=== PATIENT | male | born 1945 | race Asian ===

== ENCOUNTER 2019-01-17 08:08 | Inpatient (IN) | payer OTHER ==
[~2019-01-17] VITALS: Ht 172.7 cm; Wt 62.2 kg
--- NOTE | 2019-01-17 08:10 | NUR ---
PATIENT TRASNFERRED TO BED 8
[2019-01-17 08:13] VITALS: BP 120/80
[2019-01-17] MEDS ORDERED: NACL 0.9% 500 ML IV SCH (08:21)
--- NOTE | 2019-01-17 08:23 | NUR ---
DOCTOR AT BEDSIDE
--- NOTE | 2019-01-17 08:28 | NUR ---
CXR AT BEDSIDE
--- NOTE | 2019-01-17 08:30 | NUR ---
Tarcey doty in [facility] - 01/17/19 at 0830 by MEDFARZANA X-RAY AT BEDSIDE
[2019-01-17] MEDS ORDERED: ALBUTEROL SULFATE/IPRATROPIU 3 ML SOL IH ONE (08:40)
--- NOTE | 2019-01-17 08:40 | NUR ---
ATTEMPTED TO COLLECT URINE SAMPLE, PER PT HE DOES NOT NEED TO URINATE AT THIS TIME. PROVIDED URINAL AT BEDSIDE.
[2019-01-17 08:49] LABS: BASOPHILS # (AUTO) 0.1 K/uL (0.00-0.22); EOSINOPHILS # (AUTO) 0.2 K/uL (0-0.4); EOSINOPHILS % (AUTO) 2.7 % (0.0-4.0); HEMATOCRIT 41.7 % (36-52); HEMOGLOBIN 13.5 g/dL (12.0-18.0); LYMPHOCYTES # (AUTO) 1.7 K/uL (2.0-11.5); MEAN CORPUSCULAR HEMOGLOBIN 29 pg (27-31); MEAN CORPUSCULAR HGB CONC 32 g/dL (33-37); MEAN CORPUSCULAR VOLUME 89.2 fL (80-94); MONOCYTES # (AUTO) 0.9 K/uL (0.8-1.0); MONOCYTES % (AUTO) 11.8 % (1.7-9.3); NEUTROPHILS # (AUTO) 4.9 K/uL (1.8-7.7); NEUTROPHILS % (AUTO) 62.5 % (42.2-75.2); PLATELET COUNT (AUTO) 287 K/uL (140-450); RED BLOOD CELL COUNT(AUTO) 4.68 MIL/uL (4.20-6.10); RED CELL DISTRIBUTION WIDTH 16.5 % (11.6-13.7); WHITE BLOOD COUNT (AUTO) 7.8 K/uL (4.8-10.8)
--- NOTE | 2019-01-17 08:58 | NUR ---
PT LEFT TO CT
[2019-01-17 09:02] LABS: PROTHROMBIN TIME 10.5 secs (10.8-13.4)
[2019-01-17 09:11] LABS: ALBUMIN 3.1 g/dL (3.4-5.0); ASPARTATE AMINOTRANSFERASE 25 U/L (15-37); CARBON DIOXIDE 26.3 mmol/L (21-32); CHLORIDE 102 mmol/L (98-107); GLUCOSE 132 mg/dL (74-106); POTASSIUM 4.3 mmol/L (3.5-5.1); SODIUM SERUM 138 mmol/L (136-145); TOTAL BILIRUBIN 0.8 mg/dL (0.0-1.0); UREA NITROGEN, BLOOD 12 mg/dL (7-18)
[2019-01-17] MEDS ORDERED: PIPERACILLIN/TAZOBACTAM 3.375 GM in DEXTROSE 5% 50 ML IV ONE (09:15)
[2019-01-17] MEDS ORDERED: PIPERACILLIN/TAZOBACTAM 3.375 GM VIAL IV ONE (09:33)
--- NOTE | 2019-01-17 09:37 | NUR ---
PT STILL UNABLE TO URINATE FOR SAMPLE
[2019-01-17] MEDS ORDERED: ASPIRIN 81 MG TAB.CHEW PO ONE (09:40)
[2019-01-17] MEDS ORDERED: ENOXAPARIN 60 MG/0.6 ML SYR SUBQ ONE (09:40)
--- NOTE | 2019-01-17 10:10 | NUR ---
PT FLUCTUATING FROM NSR TO SINUS BRADYCARDIA, LOWEST AT 38 BPM, LASTING APPROXIMATELY 45 SECONDS AND THEN GOES BACK TO NSR 75-[address] COSME MADE AWARE.
--- NOTE | 2019-01-17 10:48 | NUR ---
Patient will be admitted to care of DR. DE JESUS. Admited to TELEMETRY. Will go to [facility]. Belongings list completed. Report to JAYLIN MAURICIO.
--- NOTE | 2019-01-17 10:53 | NUR ---
RECEIVED REPORT FROM ED RN CHING. PT IS FEELING DIZZY NOW, BUT STATES "FEELS OK" WHEN NOT MOVING. PT FEELS MORE DIZZY WITH MOVEMENT. AOX4, ABLE TO ANSWER ALL QUESTIONS APPROPRIATELY. AT BEDSIDE, PT PREFERS HER TO TRANSLATE. IRREGULAR CARDIAC RHYTHM, PLACED ON TELE MONITORING. INTERMITTENT RHONCHI IN TANIA, DECREASED BREATH SOUNDS. PT HAS BEEN AMBULATORY BEFORE ONSET OF CC. ALL SAFETY PRECAUTIONS IN PLACE, WILL CONTINUE TO MONITOR.
[2019-01-17] MEDS ORDERED: FUROSEMIDE 40 MG/4 ML VIAL IVP SCH (11:00)
[2019-01-17 11:03] VITALS: BP 121/65
[2019-01-17] MEDS: NACL 0.9% 1,000 ML IV SCH ×2 (11:44→22:09)
[2019-01-17] MEDS: LEVOFLOXACIN 500 MG/D5W PREMIX 100 ML IV SCH (11:45)
[2019-01-17] MEDS: methylPREDNISolone SS 40 MG/ML VIAL IM SCH ×2 (11:45→17:15)
[2019-01-17] MEDS ORDERED: methylPREDNISolone SS 40 MG in WATER STERILE 1 ML IM SCH (12:00)
[2019-01-17] MEDS ORDERED: methylPREDNISolone SS 40 MG/ML VIAL IVP SCH (12:00)
--- NOTE | 2019-01-17 12:42 | NUR ---
PER DR. WINSLOW, CT CHEST W/ CONTRAST MAY BE DONE TOMORROW ( NOT AVAILABLE TO SIGN). HAS SIGNED CONSENT FOR PATIENT.
[2019-01-17] MEDS ORDERED: ALBU-118 IH (12:48)
[2019-01-17] MEDS ORDERED: ETHA400T PO (12:48)
[2019-01-17] MEDS ORDERED: FLUT1DSK2 IH (12:48)
[2019-01-17] MEDS ORDERED: AZIT500T PO (12:48)
[2019-01-17] MEDS ORDERED: [UNRECOGNIZED DRUG - CODE] PO (12:48)
[2019-01-17] MEDS ORDERED: METO-744 PO (12:48)
[2019-01-17 14:00] LABS: APPEARANCE,URINE CLEAR (CLEAR); BILIRUBIN,URINE NEGATIVE (NEGATIVE); BLOOD, URINE NEGATIVE (NEGATIVE); COLOR,URINE YELLOW (YELLOW); LEUKOCYTE ESTERASE ,URINE NEGATIVE (NEGATIVE); NITRITE, URINE NEGATIVE (NEGATIVE); UGLUCOSE NEGATIVE (NEGATIVE)
[2019-01-17] MEDS ORDERED: ALBUTEROL SULFATE PO PRN (14:05)
--- NOTE | 2019-01-17 14:25 | NUR ---
PHARMACY SENT TECH TO ACQUIRE HOME MEDS FROM [facility]. PER PHARMACIST, ONLY 2 TABS OF ETHAMBUTOL IN THE PILL CONTAINER- ASK FAMILY TO BRING. ASKED AT BEDSIDE TO BRING ETHAMBUTOL- SHE SAYS SHE WILL BRING TOMORROW 01/18. I HAVE NOTIFIED PHARMACIST.
--- NOTE | 2019-01-17 14:46 | NUR ---
RADIOLOGY REQUEST CANCEL CT CHEST W/WO CONTRAST AND RE-ORDER TOMORROW. WILL ENDORSE TO [facility].
--- NOTE | 2019-01-17 15:17 | NUR ---
ADMINISTERED PROAIR FOR PT C/O SOB. RR 24. NO OTHER COMPLAINTS AT THIS TIME. BP STABLE. STILL IN AFIB ON MONITOR. HR 97 AT THIS TIME.
[2019-01-17 16:00] VITALS: BP 123/72
[2019-01-17] MEDS ORDERED: ALBUTEROL HFA MDI 90 MCG/ACTUATION 18 GM INH PRN (16:00)
--- NOTE | 2019-01-17 16:04 | NUR ---
NOTIFIED RT TO EVAL PATIENT. PT C/O SOB, CHEST TIGHTNESS. 94% ON 0.5L NC NOW. RETRACTIONS NOTED. INTERMITTENT WHEEZING ON RIGHT LUNG WARD. RT AWARE TO COME SEE PATIENT JIM. Addendum: 01/17/19 at 1606 by Kimi Mckeon Meng RN PLACED PATIENT IN 90 DEGREE HOB, NO RELIEF OF SYMPTOMS.
[2019-01-17] MEDS ORDERED: ALBUTEROL SULFATE/IPRATROPIU 3 ML SOL IH PRN (16:15)
--- NOTE | 2019-01-17 16:25 | NUR ---
RT SPOKE WITH DR. WINSLOW REGARDING SOB. I HAVE NOTIFIED DR. WINSLOW THAT PT HR HAS BEEN RANGING FROM HIGHEST 150S AND LOWEST IN THE 40S. HR NOW IN 80S. PT HAS NOT TAKEN DOSE OF METOPROLOL SUCC 25 MG ER TODAY PER . PER DR. WINSLOW, ADMIN ONE TIME DOSE OF METOPROLOL. ALSO RECEIVED ORDERS FOR PRN HR >130. Addendum: 01/17/19 at 1925 by Kimi Mckeon Meng, RN MILENA PRN HR >130
[2019-01-17] MEDS ORDERED: METOPROLOL SUCCINATE 50 MG TABER PO SCH (16:45)
--- NOTE | 2019-01-17 17:58 | NUR ---
DR. PALMER AT BEDSIDE TO EVAL PATIENT. NOTIFIED THAT PATIENT HAS BEEN IN CONTROLLED/UNCONTROLLED AFIB, HR RANGING FROM 150S TO 40S, ADMINISTERED ONE TIME DOSE OF METOPROLOL 25 MG ER PO AT [address] WINSLOW ORDERS. PER DR. PALMER, D/C HOME MED METOPROLOL SUCC ER 25 MG PO AND KEEP THE PRN CARDIZEM FOR HR>130. DR. PALMER ALSO ORDERED FOR 3X TROPONIN DRAW.
--- NOTE | 2019-01-17 19:00 | NUR ---
TROPONIN CRITICAL 0.092, NOTIFIED DR. PALMER, NO NEW ORDERS. PT DENIES CHEST PAIN.
--- NOTE | 2019-01-17 19:19 | NUR ---
ENDORSED POC TO ELECTRIC MULE OPERATOR RN. ENDORSED TO KEEP SPO2 BETWEEN 88-92%, PRN CARDIZEM ORDER, ORDER CT CHEST W/WO CONTRAST TOMORROW 01/18/19.
--- NOTE | 2019-01-17 19:20 | NUR ---
RECEIVED REPORT FROM AM NURSE. PT IN BED, AWAKE, ALERT AND ORIENTED. PT ABLE TO VERBALIZE NEEDS. PT AT BEDSIDE. NO C/O CHEST PAIN OR DISCOMFORT. PT LEFT FOREARM 20G INTACT AND INFUSING WELL. PT URINAL AT BEDSIDE. FALL PRECAUTIONS IN PLACE. CALL LIGHT WITHIN REACH.
[2019-01-17] MEDS: ALBUTEROL SULFATE/IPRATROPIU 3 ML SOL IH SCH (19:58)
[2019-01-17] MEDS: BUDESONIDE 0.5 MG/2 ML NEBU INH SCH (19:59)
[2019-01-17 20:00] VITALS: BP 111/75
[2019-01-17] MEDS ORDERED: NON-FORMULARY ITEM (Fluticasone/Salmeterol* (Advair 250-50 Diskus*) 1 DSK) IH SCH (21:00)
--- NOTE | 2019-01-17 21:36 | NUR ---
ROUNDED ON PT. PT SLEEPING IN BED. NO VISIBLE SIGNS OF DISTRESS. PT STATING 93% ON ROOM AIR. CALL LIGHT WITHIN REACH. WILL CONTINUE TO MONITOR.
[2019-01-18] VITALS (7 sets, daily range): BP systolic 86–121; BP diastolic 67–81
[2019-01-18] MEDS: methylPREDNISolone SS 40 MG/ML VIAL IM SCH ×2 (00:23→06:21)
[2019-01-18] MEDS: ALBUTEROL SULFATE/IPRATROPIU 3 ML SOL IH SCH ×4 (01:12→19:00)
--- NOTE | 2019-01-18 01:30 | NUR ---
PT IS VERBALIZING NEEDS, UNABLE TO UNDERSTAND DUE TO LANGUAGE BARRIER. USED [employer] SYSTEM TO CONNECT WITH [employer]ESE [employer]IGH SCHOOL BAND DIRECTOR, AT THIS TIME ALL CANTONESE INTERPRETERS BUSY. WILL CALL BACK SHORTY TO CONNECT WITH HIGH SCHOOL BAND DIRECTOR.
--- NOTE | 2019-01-18 01:46 | NUR ---
PAGED MD FOR PAIN MEDICATION, AWAITING RETURN PHONE CALL.
--- NOTE | 2019-01-18 02:12 | NUR ---
WEB MANAGER INFORMED THAT PT HR IS 152 ON THE TELE MONITOR. PT BP 108/65 AT THIS TIME. CAN NOT ADMINISTER DILTIAZEM PER MD ORDERS TO HOLD IF SBP <110. STILL WAITING FOR MD TO RETURN PHONE CALL. ATTEMPTED TO USE [employer] FOR DRYING MACHINE OPERATOR. NO DRYING MACHINE OPERATOR AVAILABLE. WILL CONTINUE TO CALL FOR DRYING MACHINE OPERATOR.
--- NOTE | 2019-01-18 03:23 | NUR ---
LAB CALLED TO REPORT CRITICAL TROPONIN LEVEL OF 0.113. PAGED TO DR. WINSLOW AT THIS TIME.
--- NOTE | 2019-01-18 03:45 | NUR ---
DR BANUELOS CALLED BACK FOR TROPONIN LEVELS
[2019-01-18] MEDS ORDERED: traMADol 50 MG TAB PO PRN (03:50)
[2019-01-18] MEDS: DILTIAZEM 25 MG/5 ML VIAL IVP PRN ×3 (03:51→12:53)
--- NOTE | 2019-01-18 03:51 | NUR ---
CARDIZEM GIVEN FOR HR >130, SBP >110. ABLE TO REACH FORMING MACHINE UPKEEP MECHANIC VIA [employer] SYSTEM, IVAN #[id number], TO EXPLAIN RATIONAL FOR MEDICATION. PT PROCEEDED TO THROW THE PHONE ON THE BED. TOLD FORMING MACHINE UPKEEP MECHANIC "TALK TO MY " PT CALLED. EXPLAINED RATIONAL FOR MEDICATION.
--- NOTE | 2019-01-18 07:10 | NUR ---
ENDORSED TO AM NURSE. PT STABLE AT THIS TIME.
--- NOTE | 2019-01-18 07:11 | NUR ---
Received bedside report from pm nurse November. Pt in semi-fowlers in bed, awake, respirations even & nonlabored. Mathew at bedside. Left forearm IV intact with ongoing NS @ 80ml/hr. Call light within reach.
--- NOTE | 2019-01-18 07:30 | NUR ---
Priyanka at bedside states that she brought pt's meds. Ethambutol & Rifampin bottles inventoried & sent to pharmacy for verification.
[2019-01-18] MEDS: AZITHROMYCIN 250 MG TAB PO SCH (08:01)
--- NOTE | 2019-01-18 08:02 | NUR ---
Notified by telemetry monitor that pt's HR went up to 150. Assessed pt: pt in bed with HOB up at 45%, c/o dizziness & nausea. Apical pulse for 1 whole minute is 134bpm. Cardizem IVP administered. Will cont to monitor. Addendum: 01/18/19 at 1103 by Linda Underwood RN Clarification: HOB up at 45�.
[2019-01-18] MEDS: ENOXAPARIN 40 MG/0.4 ML SYR SUBQ SCH (08:13)
[2019-01-18] MEDS: BUDESONIDE 0.5 MG/2 ML NEBU INH SCH ×2 (08:13→19:16)
[2019-01-18 08:36] LABS: BASOPHILS % (AUTO) 0.4 % (0.0-2.0); HEMATOCRIT 43.6 % (36-52); HEMOGLOBIN 13.9 g/dL (12.0-18.0); LYMPHOCYTES # (AUTO) 0.3 K/uL (2.0-11.5); LYMPHOCYTES % (AUTO) 4.3 % (20.5-51.1); MEAN CORPUSCULAR HEMOGLOBIN 29 pg (27-31); MEAN CORPUSCULAR HGB CONC 32 g/dL (33-37); MEAN CORPUSCULAR VOLUME 89.8 fL (80-94); MONOCYTES # (AUTO) 0.5 K/uL (0.8-1.0); MONOCYTES % (AUTO) 7.3 % (1.7-9.3); NEUTROPHILS # (AUTO) 5.9 K/uL (1.8-7.7); PLATELET COUNT (AUTO) 289 K/uL (140-450); RED BLOOD CELL COUNT(AUTO) 4.86 MIL/uL (4.20-6.10); RED CELL DISTRIBUTION WIDTH 16.6 % (11.6-13.7)
[2019-01-18 08:37] LABS: WHITE BLOOD COUNT (AUTO) 6.8 K/uL (4.8-10.8)
[2019-01-18] MEDS: ETHAMBUTOL 400 MG TABLET PO SCH (08:54)
[2019-01-18] MEDS: RIFAMPIN 300 MG CAP PO SCH (08:55)
[2019-01-18] MEDS ORDERED: ETHAMBUTOL 400 MG TAB PO SCH (09:00)
[2019-01-18] MEDS ORDERED: METOPROLOL SUCCINATE 50 MG TABER PO SCH (09:00)
--- NOTE | 2019-01-18 09:02 | NUR ---
Reassessed BP & HR. Pt currently in semi-fowlers in bed. Priyanka at bedside speaks Cantonese, able to speak & understand Solomon Islander proficiently. Per pt, he still feels dizzy when he opens his eyes, but feels ok when they're closed. SaO2 = 88-90% in room air & c/o feeling weak. O2 @ 2Lpm given via n/c, SaO2 = 90-92%. Will cont to monitor. Call light within reach.
[2019-01-18] MEDS: NACL 0.9% 1,000 ML IV SCH (09:14)
[2019-01-18 10:41] LABS: ALBUMIN 3.1 g/dL (3.4-5.0); ANION GAP 18.9 (8-16); ASPARTATE AMINOTRANSFERASE 55 U/L (15-37); CARBON DIOXIDE 23.5 mmol/L (21-32); CHLORIDE 102 mmol/L (98-107); CREATININE 1.2 mg/dL (0.7-1.3); GLUCOSE 164 mg/dL (74-106); POTASSIUM 4.4 mmol/L (3.5-5.1); SODIUM SERUM 140 mmol/L (136-145); TOTAL BILIRUBIN 0.6 mg/dL (0.0-1.0); UREA NITROGEN, BLOOD 15 mg/dL (7-18)
--- NOTE | 2019-01-18 11:15 | NUR ---
Dr. Jacques at bedside to assess pt. Updated Dr. Jacques re: administrations of persistent uncontrolled afib, dizziness, poor appetite, & generalized weakness. not at bedside. Called Mathew () celphone & notified that attending doctor is here. Per , she will be in hospital in a few minutes.
[2019-01-18] MEDS ORDERED: MECLIZINE 25 MG TAB PO SCH (11:39)
--- NOTE | 2019-01-18 11:45 | NUR ---
Mathew arrived & speaking with Dr. Jacques at bedside.
[2019-01-18] MEDS: LEVOFLOXACIN 500 MG/D5W PREMIX 100 ML IV SCH (11:57)
[2019-01-18] MEDS ORDERED: MEGESTROL 400 MG/10 ML UDC PO SCH (12:00)
--- NOTE | 2019-01-18 12:00 | NUR ---
ANTIVERT AND MEGACE ADMINISTERED. AT BEDSIDE. AGREED WITH PLAN OF CARE. PT CONTINUES TO C/O DIZZINESS. O2 SAT 98% ON 02 2L/MIN VIA N/C. N/C REMOVED, PT O2 SAT 94-96% IN RA. NO SIGNS OF DISTRESS.
--- NOTE | 2019-01-18 13:05 | NUR ---
Pt c/o vertigo few moments after Cardizem is administered. BP 105/68, HR 109-120 irregular, SaO2 89% on room air. O2 administered @ 1Lpm via n/c for comfort. Advised pt to stay in bed, bilat upper siderails in place, bed alarm on. at bedside with pt. Call light within reach. Pt verbalized feeling better after a few minutes rest. Will cont to monitor.
--- NOTE | 2019-01-18 14:00 | NUR ---
Pt in semi-fowlers in bed, vital signs obtained. No signs of distress. at bedside. Pt states no dizziness at this time. Call light within reach.
--- NOTE | 2019-01-18 14:07 | NUR ---
P.T. NOTES RECEIVED P.T. EVAL ORDER; MULT. ATTEMPTS, Pt DECLINED DUE TO FEELS DIZZY WHEN HE MOVES, WANTS TO REST & BE COMFORTABLE AT THIS TIME, REQUESTED P.T. STAFF TO FF UP TOMORROW, (JARVIS) IN ROOM & SUPPORTIVE; Pt MEDICATED W/ ANTIVERT PER RN; EXPLAINED RISKS OF BED BOUND, BENEFITS OF THERAPY, Pt STILL DECLINED W/ P.T.; LIVES AT HOME W/ , USES HOME O2 3L, AMBULATORY WITHOUT ASST DEVICE; WK=144/67, 102/66; CQ=448; O2 SAT 3L=95%; Pt & APPRECIATIVE, BED ALARM ON, CALL [facility], PHONE, TABLE IN REACH; FF UP TOMORROW.
--- NOTE | 2019-01-18 14:50 | NUR ---
Tech at bedside obtaining echocardiogram. Pt awake, no signs of distress, respirations even & nonlabored. Call light within reach.
--- NOTE | 2019-01-18 16:05 | NUR ---
Pt HR @ 145bpm via tele monitor. Pt currently moving around in bed & attempting to use urinal. Pt able to urinate 100ml light sherly urine. Pericare provided, underpads changed. Pt repositioned. Skin to posterior body clear & intact. No signs of distress. Pt c/o mild dizziness during repositioning but states "ok ok" after a few minutes of rest. Call light within reach. Left AC IV saline lock intact & asymptomatic.
--- NOTE | 2019-01-18 16:40 | NUR ---
Pt in semi-fowlers in bed, awake & interacting appropriately with , respirations even & nonlabored, HR = 120-140bpm via tele monitor. Call light within reach.
[2019-01-18] MEDS: traMADol 50 MG TAB PO PRN (17:41)
--- NOTE | 2019-01-18 19:05 | NUR ---
Bedside report given to pm nurse November. Pt in bed, no distress at this time. Mathew at bedside.
--- NOTE | 2019-01-18 19:06 | NUR ---
REPORT RECEIVED FROM AM NURSE. PT SLEEPING IN BED, BUT EASILY AROUSABLE. BREATHING EQUAL AND UNLABORED. AT BEDSIDE. NO C/O PAIN. PT ON 2L NC. PT LEFT FOREARM 20 G S/L INTACT. FALL PRECAUTIONS IN PLACE. URINAL AT BEDSIDE. CALL LIGHT WITHIN REACH. WILL CONTINUE TO MONITOR.
--- NOTE | 2019-01-18 20:00 | NUR ---
VITALS TAKEN. PT HR 140, BP 96/67. PER ORDERS TO HOLD CARDIZEM.
[2019-01-18] MEDS: MECLIZINE 25 MG TAB PO SCH (20:10)
--- NOTE | 2019-01-18 20:30 | NUR ---
1900 DID NOT WANT HHNTX GIVEN. SHE WANTED HER TO SLEEP. PATIENT WAS NOT IN ANY RESPIRATORY DISTRESS
--- NOTE | 2019-01-18 21:15 | NUR ---
BLOOD PRESSURE REASSESS 92/65 AT THIS TIME. WILL CONTINUE TO MONITOR.
--- NOTE | 2019-01-18 22:15 | NUR ---
BP REASSESSED 96/59 AT THIS TIME. PULSE 128, O2 92%
--- NOTE | 2019-01-18 23:59 | NUR ---
DR. MONTES CALLED BACK REGARDING PTS BP OF 86/69 AT 2352. PER DIA NOWAK TO BOLUS 500ML N.S
[2019-01-19] VITALS (69 sets, daily range): BP systolic 47–157; BP diastolic 25–99
[2019-01-19] MEDS ORDERED: NACL 0.9% 500 ML IV ONE
[2019-01-19] MEDS: ALBUTEROL SULFATE/IPRATROPIU 3 ML SOL IH SCH ×4 (00:59→19:16)
--- NOTE | 2019-01-19 01:15 | NUR ---
BOLUS FINISHED. PT BP REASSESS 95/73 AT THIS TIME. WILL CONTINUE TO MONITOR.
--- NOTE | 2019-01-19 04:29 | NUR ---
PT CURRENT HR 165. PT LAST BP AT 0400 WAS 92/74[address] MONTES TO INFORM. PER MD ORDER CARDIZEM 10MG IVP ONCE.
[2019-01-19] MEDS ORDERED: DILTIAZEM 25 MG/5 ML VIAL IVP SCH (05:00)
--- NOTE | 2019-01-19 05:00 | NUR ---
PT SLEEPING BUT AROUSABLE. PT SLEEPING WITH MOUTH OPEN AND STATING 86% ON N.C. PT SWITCHED TO SIMPLE MASK 6L FOR ADEQUATE OXYGENATION. PT CURRENTLY STATING 90% ON SIMPLE MASK. PER MD SATURATIONS TO BE MAINTAINED BETWEEN 88-92%.
--- NOTE | 2019-01-19 05:01 | NUR ---
PT PLACED ON CONTINUOUS PULSE OX AT THIS TIME.
--- NOTE | 2019-01-19 06:55 | NUR ---
PT SON CALLED TO SPEAK WITH NURSE. SON STATED THAT PT "DIDN'T LOOK WELL." UPON OBSERVATION PT STATING AT 75% RAPID RESPONSE CALLED AND SUCTION OBTAINED.
[2019-01-19] MEDS ORDERED: EPINEPHrine PFS 0.1 MG/ML SYR IVP ONE (07:00)
[2019-01-19] MEDS ORDERED: CODE BLUE PARTICIPANT 1 EA MISC MC ONE (07:00)
--- NOTE | 2019-01-19 07:00 | NUR ---
ASSOCIATE MEDIA PLANNER CALLED FOR PT WAS UNRESPONSIVE AND AT 702 CODE BLUE WAS CALLED CPR WAS STARTED AND ACLS DRUGS GIVEN AND ER DR. BLACKMAN AT BEDSIDE TO INTUBATE PT AT 705 WITH 7.5 ET TUBE AT 22CM PT WAS THEN TRANS PORTED TO ICU 3 AND PT WAS PLACED ON CARESCAPE VENT WITH SETTINGS AC 12 VT450 PEEP 5 FIO2 100% AND AMBU BAG AT HOB AND I\\L TX WAS GIVEN AT 740 WITH DUONEB 3ML AND PULMICORT 0.5MG WITH NO ADVERSE REACTION POST TX B\\S ARE COARSE BILATERALLY SXN PT AND NO RETURN OF SECRETIONS AT THIS TIME PT" HANDS ARE VERY COLD UNABLE TO PICK O2 SAT
[2019-01-19 07:35] LABS: ANION GAP 14.6 (8-16); CARBON DIOXIDE 26.1 mmol/L (21-32); CHLORIDE 104 mmol/L (98-107); CREATININE 1.5 mg/dL (0.7-1.3); GLUCOSE 152 mg/dL (74-106); POTASSIUM 4.7 mmol/L (3.5-5.1); SODIUM SERUM 140 mmol/L (136-145); UREA NITROGEN, BLOOD 28 mg/dL (7-18)
--- NOTE | 2019-01-19 07:37 | NUR ---
PT RECEIVED FROM TELE UNIT VIA GURNEY. PT WAS UNRESPONSIVE, MOVING EXTREMITIES SOMETIMES UP ON ARRIVAL. PLACED PT ON MONITOR. PUPILS REACTIVE TO LIGHT 3MM RIGHT EYE AND 4 MM LEFT EYE. ON ETT TO VENT AC/VC FIO2 100% TV 450 RR 12 PEEP 5. SKIN DRY AND WARM TO TOUCH. TEMPERATURE TAKEN WAS 97.5 DEGREE F. LUNGS CLEAR ON AUSCULTATION. PULSE PRESENT. LEFT AC 20 G. SALINE LOCK. FLUSHED. ABDOMEN SOFT, ROUND AND NON-TENDER. ACTIVE BOWEL SOUND. BRUISE NOTED ON ARM. PLACED PT ON FALL PRECAUTION.
--- NOTE | 2019-01-19 07:39 | NUR ---
PT NOTE 0735 DC PT ORDER D/T CHANGE IN MEDICAL CONDITION/TRANSFER TO ICU 01/19; WILL NEED NEW PT ORDER ONCE Pt IS MEDICALLY APPROPRIATE TO PARTICIPATE WITH PT EVAL.
[2019-01-19] MEDS: DILTIAZEM 25 MG/5 ML VIAL IVP PRN (07:45)
[2019-01-19] MEDS: BUDESONIDE 0.5 MG/2 ML NEBU INH SCH ×2 (07:52→19:16)
--- NOTE | 2019-01-19 08:10 | NUR ---
OGT INSERTED ORDERED, PLACEMENT CHECKED WITH TWO RNS.
--- NOTE | 2019-01-19 08:15 | NUR ---
DR. MONTES ORDERED TO START OGT FEEDING PULMOCARE 20 ML/HR. MADE AWARE THAT WE NEED TO CHECK WITH RD/DIETERY TO MAKE SURE IF WE HAVE PULMOCARE. DR. MONTES SAID WE CAN START OTHER FEEDING SIMILAR TO PULMOCARE. WILL FOLLOW UP WITH RD REGARDING FEEDING.
--- NOTE | 2019-01-19 08:20 | NUR ---
BAUGH CATHETER INSERTED, 300ML ORANGE CLEAR URINE OUTPUT NOTED, PT TOLERATED WELL ON ALL THE PROCEDURE.
--- NOTE | 2019-01-19 09:14 | NUR ---
PATIENT HAS BEEN SCREENED AND CATEGORIZED HIGH NUTRITION RISK. PATIENT WILL BE SEEN WITHIN 1-2 DAYS OF ADMISSION. 01/19/[address]
--- NOTE | 2019-01-19 09:16 | NUR ---
NOTED V-TACH ON MONITOR. PAGED DR. PALMER. WAITING FOR CALL BACK.
--- NOTE | 2019-01-19 09:19 | NUR ---
PT BP NOTED AT LOWER SITE 46/35. DR. MONTES PAGED WAITING FOR CALL BACK.
--- NOTE | 2019-01-19 09:30 | NUR ---
BP 53/30, HR 115, RR 19, TEMP 96.5F, O2 SAT 85%, RT AT BEDSIDE, CALLED DR. HADLEY, OBTAINED NEW ORDERS.
--- NOTE | 2019-01-19 09:36 | NUR ---
UNABLE TO OBTAIN ABG AT THIS TIME DUE TO BP OF 53\30 WILL RETRY LATER WHEN BP IS MORE STABLE
[2019-01-19] MEDS ORDERED: NACL 0.9% 500 ML IV SCH (09:40)
[2019-01-19] MEDS ORDERED: ALBUMIN HUMAN 25% 100 ML IV SCH (09:41)
[2019-01-19] MEDS: methylPREDNISolone SS 40 MG/ML VIAL IM SCH (10:11)
[2019-01-19] MEDS: ENOXAPARIN 40 MG/0.4 ML SYR SUBQ SCH (10:13)
[2019-01-19] MEDS: RIFAMPIN 300 MG CAP PO SCH (10:14)
[2019-01-19] MEDS: DEXT 5% /NACL 0.9% 1,000 ML IV SCH (10:14)
[2019-01-19] MEDS: MEGESTROL 400 MG/10 ML UDC PO SCH (10:15)
[2019-01-19] MEDS: MECLIZINE 25 MG TAB PO SCH ×2 (10:15→20:24)
[2019-01-19] MEDS: AZITHROMYCIN 250 MG TAB PO SCH (10:16)
[2019-01-19] MEDS: ETHAMBUTOL 400 MG TABLET PO SCH (10:16)
[2019-01-19] MEDS: NOREPINEPHRINE 4 MG in DEXTROSE 5% 250 ML IV PRN ×2 (10:27→16:38)
--- NOTE | 2019-01-19 10:40 | NUR ---
CALLED AND F/U WITH DIETERY REGARDING FEEDING. RD SAID SHE WILL CHECK AND WILL CALL US BACK.
--- NOTE | 2019-01-19 10:53 | NUR ---
DIETITIAN CALLED BACK STATED WILL ORDER PULMOCARE STARTED TOMORROW, RECOMMENDED USE VITAL AF TODAY STARTED AT 20ML/HR, GOAL 70ML/HR, FREE WATER 110ML Q4HR AT THIS TIME.
--- NOTE | 2019-01-19 10:55 | NUR ---
DR. PALMER IN TO SEE PT. MADE AWARE OF PT STATUS, ELEVATED TROPONIN 0.285, EKG RHYTHM. ALSO MADE AWARE OF DECREASED BP AND ELEVATED HR. RECEIVED NEW ORDER.
[2019-01-19] MEDS ORDERED: AMIODARONE 150 MG in DEXTROSE 5% 100 ML IV SCH (11:00)
--- NOTE | 2019-01-19 11:34 | NUR ---
UNABLE TO OBTAIN ABG DUE TO LOW B\P OF 69/25 NOTIFIED HANG ACKERMAN
[2019-01-19] MEDS: LEVOFLOXACIN 500 MG/D5W PREMIX 100 ML IV SCH (11:36)
[2019-01-19] MEDS: AMIODARONE 450 MG in DEXTROSE 5% 250 ML IV SCH ×2 (11:42→12:44)
--- NOTE | 2019-01-19 11:50 | NUR ---
TUBE FEEDING STARTED AT 20ML/HR VIA OGT, PT TOLERATED WELL.
--- NOTE | 2019-01-19 12:00 | NUR ---
PT HR WENT DOWN TO 40-50 BEAT/HR, AMIODARONE HELD AT THIS TIME, PAGED DR. PALMER.
--- NOTE | 2019-01-19 12:18 | NUR ---
DR. PALMER CALLED BACK, UPDATED PT'S CONDITION, PT HR WENT DOWN TO 30-40 BEAT/MIN, NO FURTHER ORDER FOR DR. PALMER AT THIS TIME.
--- NOTE | 2019-01-19 12:20 | NUR ---
PT HAS NO PULSE, PEA ON MONITOR, CODE BLUE STARTED, DR. CORNELIUS AT BEDSIDE.
--- NOTE | 2019-01-19 12:20 | NUR ---
AT BEDSIDE MAKING CHANGES TO VENT AND PT WENT PULSELESS AND PEA ON MONITOR AND CODE BLUE CALLED AND CPR STARTED AND ACLS DRUGS GIVEN WITH HANG ACKERMAN AND HANG LEDESMA AT BEDSIDE PT'S PULSE RETURNED AT 1230 AND PT WAS PLACED BACK ON VENT WITH THE CHANGES THAT WERE MADE BY
[2019-01-19] MEDS ORDERED: DOPamine 400 MG/D5W PREMIX 250 ML IV ONE (12:29)
[2019-01-19] MEDS: DOPamine 400 MG/D5W PREMIX 250 ML IV SCH (13:14)
--- NOTE | 2019-01-19 13:23 | NUR ---
DR. MONTES CALLED AND EXPLAINED TO THE HANNA JARVIS OVER THE PHONE ABOUT PICC LINE INSERTION. VERBALIZED UNDERSTANDING AND AGREED TO DO THE PROCEDURE. DR. MONTES SAID PICC LINE CAN BE DONE AT THIS TIME. HE SAID HE WILL SIGN THE CONSENT LATER. CONSENT FORM IN THE CHART.
--- NOTE | 2019-01-19 13:52 | NUR ---
PICC LINE INSERTED TO RIGHT UPPER ARM BY PICC LINE NURSE AT BEDSIDE, X-RAY CONFIRMED TO USE PICC LINE.
--- NOTE | 2019-01-19 14:35 | NUR ---
LYNN KAMINSKI CALLED. SAID VITAL AF IS EQUIVALENT TO PULMOCARE. VITAL AF WILL BE OKAY FOR THE PT PER LYNN.
--- NOTE | 2019-01-19 15:18 | NUR ---
01/19/19 RD INITIAL ASSESSMENT COMPLETED PLEASE REFER TO NUTRITION ASSESSMENT UNDER CARE ACTIVITY FOR ESTIMATED NUTRITIONAL NEEDS. 1. CONTINUE VITAL AF 1.2 AT GOAL RATE 70 ML/HR AND GOAL VOLUME 1680 ML/DAY -THIS WILL PROVIDE 2016 KCAL AND 126 GM OF PROTEIN WHICH MEETS 100% OF CALORIE AND PROTEIN NEEDS. 2. CONTINUE FREE WATER FLUSH OF [address] TO FOLLOW-UP 2-3 DAYS, HIGH RISK MOLLY ZHENG RD
--- NOTE | 2019-01-19 15:42 | NUR ---
WAS NOT ABLE TO OBTAIN ABG AT THIS TIME WILL TRY LATER
--- NOTE | 2019-01-19 16:00 | NUR ---
PT IS RESTING IN BED, OPEN EYES SOMETIMES, RESPOND TO PAINFUL STIMULI, NO S/S OF DISTRESS, PM CARE AND F/C CARE PROVIDED, ORAL CARE DONE, TUBE FEEDING TOLERATED WELL, 0ML RESIDUALS, INCREASED FEEDING TO 40ML/HR AT THIS TIME, POSITION CHANGED FOR OFF LOAD PRESSURE.
--- NOTE | 2019-01-19 17:20 | NUR ---
ABG DRAWN ON RR WITHOUT INCIDENT AND RESULTS READ BACK TO AT 1714 TO DECREASE FIO2 TO 50% AND ABG IN AM AT 0600
--- NOTE | 2019-01-19 18:00 | NUR ---
NO S/S OF DISTRESS, VSS, FLACC 0, POSITION CHANGED FOR OFF LOAD PRESSURE.
--- NOTE | 2019-01-19 19:10 | NUR ---
REPORT GIVEN TO FABRIC SOURCER NURSE AT BEDSIDE FOR CONTINUE OF CARE, PT IS IN STABLE CONDITION AT THIS TIME.
--- NOTE | 2019-01-19 19:15 | NUR ---
RECEIVED PT FROM AM NURSE. PT AT BED RESTING, EYES CLOSED, BREATHING REGULARLY, ETT TO VENT, FI02 50%, TV 500. R18. F 50. PEEP 6 AC/VC, PERRL 3MM, SLUGGISH, HEART RATE A. FIB, PULSES 2+ BILATERAL UPPER AND LOWER EXTREMITIES, CAP REFILL <3S, ABDOMEN SOFT, ROUND, NONDISTENDED, NONTENDER, OG TUBE TO FEEDING RUNNING 40 ML/HR, 110 WATER FLUSH Q4H, RESIDUAL 0 ML, BOWEL SOUNDS ACTIVE IN ALL QUADRANTS, GENERALIZED WEAKNESS, BLADDER NON DISTENDED, FC IN PLACE, SKIN, DRY, INTACT, WARM, DRY, APPROPRIATE COLOR TO ETHNICITY, HOB AT 30 DEGREES, SIDERAILS UP X2, CALL LIGHT WITHIN REACH.
--- NOTE | 2019-01-19 19:40 | NUR ---
RECEIVED PATIENT ENDOTRACHEALLY INTUBATED WITH 7.5 ETT AT 24 CM AT TEETH LINE TO MECHANICAL VENTILATOR AT SETTINGS: AC/VC 500, 18, +6, 50%. VENT CHECK DONE. VENT PLUGGED INTO RED OUTLET. VENT ALARMS ON AND AUDIBLE. AMBU BAG AT [facility]. AIRWAY SECURE AND PATENT. SUCTIONED SCANT AMOUNT OF THICK, YELLOW SECRETIONS. SCHEDULED BREATHING TREATMENTS ADMINISTERED. TOLERATED TREATMENTS WELL, NO ADVERSE SIDE EFFECTS. NO ACUTE RESPIRATORY DISTRESS NOTED AT THIS TIME. WILL CONTINUE TO MONITOR.
[2019-01-19] MEDS: NOREPINEPHRINE 16 MG in DEXTROSE 5% 250 ML IV PRN (21:18)
[2019-01-20] VITALS (103 sets, daily range): BP systolic 76–154; BP diastolic 47–98
[2019-01-20] MEDS: ALBUTEROL SULFATE/IPRATROPIU 3 ML SOL IH SCH ×4 (01:30→18:43)
--- NOTE | 2019-01-20 01:41 | NUR ---
VENT CHECK DONE. VENT ALARMS ON AND AUDIBLE. SCHEDULED BREATHING TREATMENT ADMINISTERED. TOLERATED TX WELL WITHOUT ADVERSE SIDE EFFECTS. SUCTIONED MODERATE AMOUNT OF THICK, YELLOW SECRETIONS. WILL CONTINUE TO MONITOR.
--- NOTE | 2019-01-20 02:15 | NUR ---
PT HAVE TEMPERATURE OF 101.[address] TIJERINA AND UPDATED MD ON PT CONDITION. RECEIVED ORDERS OF TYLENOL 650 MG Q4H PRN, BLOOD CULTURE, CXRAY, URINE ANALYSIS ON AM. WILL CONTINUE TO MONITOR PT.
[2019-01-20] MEDS ORDERED: ACETAMINOPHEN 325 MG TAB GT PRN (02:20)
--- NOTE | 2019-01-20 02:30 | NUR ---
COLD MEASURES INITIATED ON PT. TEMPERATURE AND HR STILL ELEVATED. WILL CONTINUE TO MONITOR.
--- NOTE | 2019-01-20 03:13 | NUR ---
PHONE CALL TO DR ESTELA Rasheed,ELECTROENCEPHALOGRAPHIC TECHNOLOGIST, RE; HR 160'S TO 170'S; PT STILL ON DOPAMINE DRIP 400MG IN 250ML D5W AT 5 MCG/KG/MIN AND LEVOPHED 16MG IN 250ML D5W AT 18MCG/MIN;ORDERED CARDIZEM 5MG IVP X 1 NOW, MAY REPEAT ANOTHER 5 MG IVP X1 AFTER 30 MINUTES IF HR ABOVE 100.WILL CONTINUE TO CLOSELY MONITOR PT COOLING MEASURES RENDERED FOR TEMP 101.8 Addendum: 01/20/19 at 0500 by Marilee Cage RN DR Kathya PALMER AWARE OF STAT EKG AFTER CHANGE IN EKG NOTED( Alem WHITETTER)
[2019-01-20] MEDS ORDERED: DILTIAZEM 25 MG/5 ML VIAL IVP ONE (03:15)
[2019-01-20] MEDS: DILTIAZEM 25 MG/5 ML VIAL IVP SCH ×2 (03:19→04:10)
[2019-01-20] MEDS ORDERED: DILTIAZEM 25 MG/5 ML VIAL IVP PRN (03:20)
--- NOTE | 2019-01-20 03:55 | NUR ---
FAMILY AT BEDSIDE. VENT CHECK DONE. VENT ALARMS ON AND AUDIBLE. WILL CONTINUE TO MONITOR.
--- NOTE | 2019-01-20 04:10 | NUR ---
TEMP 99.6, PT HR STILL ELEVATED. HOB 30 DEGREES, SIDERAILS UP X2, CALL LIGHT WITHIN REACH. WILL CONTINUE TO MONITOR.
[2019-01-20] MEDS: DOPamine 400 MG/D5W PREMIX 250 ML IV SCH (06:34)
[2019-01-20 06:58] LABS: HEMATOCRIT 45.4 % (36-52); HEMOGLOBIN 14.3 g/dL (12.0-18.0); MEAN CORPUSCULAR HEMOGLOBIN 28 pg (27-31); MEAN CORPUSCULAR HGB CONC 32 g/dL (33-37); MEAN CORPUSCULAR VOLUME 90.2 fL (80-94); PLATELET COUNT (AUTO) 171 K/uL (140-450); RED BLOOD CELL COUNT(AUTO) 5.03 MIL/uL (4.20-6.10); WHITE BLOOD COUNT (AUTO) 15.4 K/uL (4.8-10.8)
[2019-01-20 07:12] LABS: ANION GAP 16.6 (8-16); CARBON DIOXIDE 24.7 mmol/L (21-32); CHLORIDE 101 mmol/L (98-107); CREATININE 2.4 mg/dL (0.7-1.3); GLUCOSE 125 mg/dL (74-106); POTASSIUM 4.3 mmol/L (3.5-5.1); SODIUM SERUM 138 mmol/L (136-145); UREA NITROGEN, BLOOD 45 mg/dL (7-18)
[2019-01-20] MEDS: BUDESONIDE 0.5 MG/2 ML NEBU INH SCH ×2 (07:23→18:43)
--- NOTE | 2019-01-20 07:25 | NUR ---
REPORT GIVEN ON AM NURSE FOR CONTINUITY OF CARE.
--- NOTE | 2019-01-20 07:26 | NUR ---
RECEIVED BEDSIDE REPORT FROM TRAFFIC ASSISTANT RN, PT IS LETHARGIC, FLACC 0, NO S/S OF DISTRESS, ETT TO VENT WITH SETTING FIO2 50%, TV 500, R 18, PEEP 6, O2 100%, A-FIB ON FIRMWARE SOFTWARE VERIFICATION ENGINEER, SOFT ROUND ABDOMEN WITH ACTIVE BOWEL SOUNDS, OGT IN PLACE FEEDING WITH VITAL AF AT 40 ML/HR, NO RESIDUALS, BAUGH CATHETER IN PLACE WITH CLEAR ORANGE URINE VIA GRAVITY, GENERALIZED WEAKNESS NOTED TO ALL EXTREMITIES SKIN IS INTACT, WARM AND DRY TO TOUCH, PICC LINE TO RIGHT UPPER ARM, PATENT, RUNNING LEVOPHED AT 14MCG/MIN, DOPAMINE AT 5 MCG/MIN, AND D5 NS AT 40ML/HR. PERIPHERAL LINE TO RIGHT HAND, 22GA AND LEFT AC 20GA, PATENT AND SL. HOB ELEVATED, SAFETY MEASURES IN PLACE, ORAL CARE PROVIDED, POSITION CHANGED FOR OFF LOAD PRESSURE, WILL CONTINUE TO MONITOR.
[2019-01-20 07:29] LABS: LYMPHOCYTES % (MANUAL) 9 % (20-46); MONOCYTES % (MANUAL) 5 % (5-12)
--- NOTE | 2019-01-20 07:30 | NUR ---
RECEIVED REPORT FROM CINDY MAURICIO. PT. IS SLEEPING FROM SEDATION,SKIN DRY AND WARM TO TOUCH. COLOR IS NORMAL , HE IS ON O2 AT 2L NC, BREAST SOUND IS CLEAR . ABDOMEN IS SOFT BOWEL SOUND IS ACTIVE. HE IS NPO. IV SITE HAS CENTRAL; LINE ON RT IJ INFUSING D5 NS AT 80 ML/H , ON LEVOPHED AT 4MCG . THERE SOME RED AREA ON HAND AND LEGG BUT NO OPEN AREA.BAUGH CATH DRAIN CLEAR LIGHT YELLOW URINE. Addendum: 01/20/19 at 1048 by Estefany Shetty RN THIS REPORT IS NOT FOR THIS PATIENT
[2019-01-20 08:47] LABS: APPEARANCE,URINE SLIGHTLY HAZY (CLEAR); COLOR,URINE DARK YELLOW (YELLOW)
[2019-01-20 08:48] LABS: BLOOD, URINE 3+ (NEGATIVE); UGLUCOSE NEGATIVE (NEGATIVE)
[2019-01-20 08:49] LABS: BILIRUBIN,URINE 1+ (NEGATIVE); LEUKOCYTE ESTERASE ,URINE TRACE (NEGATIVE); NITRITE, URINE POSITIVE (NEGATIVE)
[2019-01-20] MEDS: methylPREDNISolone SS 40 MG/ML VIAL IM SCH (08:56)
[2019-01-20] MEDS: MECLIZINE 25 MG TAB PO SCH ×2 (08:58→20:23)
[2019-01-20] MEDS: MEGESTROL 400 MG/10 ML UDC PO SCH (08:59)
[2019-01-20] MEDS: ETHAMBUTOL 400 MG TABLET PO SCH (09:00)
--- NOTE | 2019-01-20 09:00 | NUR ---
SCHEDULED MEDICATION GIVEN VIA OGT, PT TOLERATED WELL.
[2019-01-20] MEDS: RIFAMPIN 300 MG CAP PO SCH (09:01)
[2019-01-20] MEDS: ENOXAPARIN 40 MG/0.4 ML SYR SUBQ SCH (09:03)
[2019-01-20] MEDS: DEXT 5% /NACL 0.9% 1,000 ML IV SCH (09:41)
[2019-01-20] MEDS: AZITHROMYCIN 250 MG TAB PO SCH (09:41)
--- NOTE | 2019-01-20 10:00 | NUR ---
DR. HADLEY CAME IN TO SEE PT AT BEDSIDE, SPOKE TO PT'S FAMILY MEMBERS, WILL FOLLOW UP WITH NEW ORDERS.
[2019-01-20 10:04] LABS: WBC,URINE 0-5 /HPF (0-5)
--- NOTE | 2019-01-20 10:27 | NUR ---
[facility] AT BED [facility].
[2019-01-20] MEDS ORDERED: NACL 0.9% 500 ML IV SCH (10:30)
[2019-01-20] MEDS: NACL 0.9% 1,000 ML IV SCH ×2 (10:31→23:06)
--- NOTE | 2019-01-20 11:40 | NUR ---
TRANSFERRED PT TO CT WITH RN, RT AND CULTURAL HISTORIAN, CT HEAD COMPLETED AT THIS TIME.
[2019-01-20] MEDS ORDERED: PIPER/TAZO 2.25GM/D5W PREMIX 50 ML IV SCH (12:00)
--- NOTE | 2019-01-20 12:00 | NUR ---
NO S/S OF DISTRESS, VSS, STATED PAIN AT LEFT CHEST MUSCLE PAIN, PT'S FAMILY AT BEDSIDE, PAIN MEDICATION GIVEN, PT VOMIT SMALL AMOUNT OF FEEDING FORMULA, COULD NOT TOLERATED WELL, DECREASED RATE TO 20ML/HR. ORAL CARE PROVIDED, POSITION CHANGED FOR OFF LOAD PRESSURE.
[2019-01-20] MEDS: PIPER/TAZO 3.375GM/D5W PREMIX 50 ML IV SCH ×3 (12:03→23:06)
[2019-01-20] MEDS: LEVOFLOXACIN 500 MG/D5W PREMIX 100 ML IV SCH (12:08)
[2019-01-20] MEDS: traMADol 50 MG TAB PO PRN ×2 (12:08→20:31)
--- NOTE | 2019-01-20 12:18 | NUR ---
ABNORMAL CT RESULT OBTAINED, REPORT TO DR. HADLEY
--- NOTE | 2019-01-20 14:00 | NUR ---
NO CHANGE OF CONDITION AT THIS TIME, PT IS RESTING IN BED, VSS, FLACC 0, POSITION CHANGED FOR OFF LOAD PRESSURE.
[2019-01-20] MEDS: NOREPINEPHRINE 16 MG in DEXTROSE 5% 250 ML IV PRN ×2 (14:06→18:19)
--- NOTE | 2019-01-20 16:00 | NUR ---
PT IS AWAKE, AGITATED, TRYING TO PULL OUT OF TUBE, C/O CHEST AREA MUSCLE PAIN, DR. KIRBY AWARE, NEW ORDER OBTAINED, SOFT RESTRAIN PLACED ON JHONNY. ARM Addendum: 01/20/19 at 1621 by Karley Wheat RN EDUCATION GIVEN TO PT'S FAMILY MEMBERS AND PAPER SIGNED, VERBALIZED UNDERSTANDING.
[2019-01-20] MEDS ORDERED: fentaNYL 0.05 MG/ML VIAL IVP PRN (16:15)
[2019-01-20] MEDS: LORazepam 2 MG/ML VIAL IVP PRN (16:42)
--- NOTE | 2019-01-20 18:00 | NUR ---
PT IS RESTING IN BED, VSS, FLACC 0, POSITION CHANGED FOR OFF LOAD PRESSURE.
--- NOTE | 2019-01-20 18:30 | NUR ---
DR. PALMER CAME IN TO SEE PT AT BEDSIDE, UPDATED PT'S CONDITION, WILL CONTINUE TO MONITOR.
[2019-01-20] MEDS ORDERED: ONDANSETRON 4 MG/2 ML VIAL IVP PRN (18:45)
[2019-01-20] MEDS ORDERED: DIGOXIN 0.25 MG/ML AMP IV SCH (18:45)
--- NOTE | 2019-01-20 19:07 | NUR ---
RECEIVED PATIENT ENDOTRACHEALLY INTUBATED WITH 7.5 ETT AT 24 CM AT TEETH/GUM LINE TO MECHANICAL VENTILATOR AT SETTINGS: AC/VC 500, 18, +6, 30%. VENT CHECK DONE. VENT PLUGGED INTO RED OUTLET. VENT ALARMS ON AND AUDIBLE. AMBU BAG AT [facility]. AIRWAY SECURE AND PATENT. SUCTIONED LARGE AMOUNT OF THICK, YELLOW SECRETIONS. SCHEDULED BREATHING TREATMENTS ADMINISTERED. TOLERATED TREATMENTS WELL WITHOUT ADVERSE SIDE EFFECTS. ORAL CARE DONE. NO ACUTE RESPIRATORY DISTRESS NOTED AT THIS TIME. WILL CONTINUE TO MONITOR.
--- NOTE | 2019-01-20 19:15 | NUR ---
REPORT GIVEN TO WIRE TESTER NURSE AT BEDSIDE FOR CONTINUE OF CARE.
--- NOTE | 2019-01-20 19:30 | NUR ---
RECEIVED REPORT FROM AM SHIFT, PT IS LETHARGIC,OPEN EYES NOT FOLLOW COMMANDS.PT IS ON ETT TO VENT WITH VENT SETTING AC MODE,TIDAL VOLUME 500,RATE 18,FIO2 30% AND PEEP 6, TOLERATING WELL, NO S/S OF RESP DISTRESS,NO SOB.AFIB NOTED TO PRINCIPAL TECHNICAL WRITER. PICC LINE TO RIGHT UPPER ARM DOUBLE LUMENS INTACT WELL. PERIPHERAL LINE TO RFA NO 22 AND LEFT AC NO 20 INTACT AND FLUSH WELL. OGT IN PLACE,FEEDING HOLD PER AM SHIFT FOR THIS TIME D/T S/S NAUSEA.OGT PLACEMENT CONFIRM,NO RESIDUAL NOTED.CONTINUE ON IV NS AT 100 CC/HR AND LEVOPHED AT 16 MCG/MIN. NO S/S PAIN AT THIS TIME, FLACC 0. ABD SOFT NON DISTENDED. SKIN INTACT WITH MULTIPLE BRUSES AND REDNESS ON BUE AND BLE. PT ON SOFT WRIST RESTRAINT D/T EPISODE TRYING TO REMOVE TUBING PER REPORT.F/C IN PLACE WITH ORANGE CLEAR COLOR. REPOSITION FOR COMFORT.KEPT CLEAN AND DRY.CONTINUE TO MONITOR CLOSELY.
[2019-01-20] MEDS: FAMOTIDINE 20 MG/2 ML VIAL IV SCH (20:23)
--- NOTE | 2019-01-20 20:31 | NUR ---
NIGHT MEDS GIVEN WELL ULTRAM 50 MG PRN FOR MILD PAIN. FLACC 5. CONTINUE TO MONITOR.
--- NOTE | 2019-01-20 20:45 | NUR ---
LEVOPHED DRIP DECREASE FROM 16 MCG/MIN TO 14 MCG/MIN, PT TOLERATING WELL.CONT TO MONITOR CLOSELY.
--- NOTE | 2019-01-20 21:30 | NUR ---
NO S/S OF PAIN AT THIS TIME PT SLEEP WELL FLACC 0.
--- NOTE | 2019-01-20 21:30 | NUR ---
LEVOPHED DRIP DECREASE FROM 14 MCG/MIN TO 12 MCG/MIN, PT TOLERATING WELL.CONT TO MONITOR CLOSELY.
--- NOTE | 2019-01-20 23:00 | NUR ---
CONTINUE ON FEEDING VIA OGT VITAL ORDER AT 30 CC/HR AT THIS TIME, PT LOOK RELAX,NO S/S OF PAIN NOTED. KEPT CLEAN AND DRY
[2019-01-21] VITALS (82 sets, daily range): BP systolic 89–140; BP diastolic 43–90
[2019-01-21] MEDS: ALBUTEROL SULFATE/IPRATROPIU 3 ML SOL IH SCH ×4 (01:51→19:18)
--- NOTE | 2019-01-21 02:02 | NUR ---
VENT CHECK DONE. VENT ALARMS ON AND AUDIBLE. SCHEDULED BREATHING TREATMENT ADMINISTERED. TOLERATED TX WELL, NO ADVERSE SIDE EFFECTS. SUCTIONED SCANT AMOUNT OF THICK, YELLOW SECRETIONS. ORALLY SUCTIONED MODERATE AMOUNT OF BROWN SECRETIONS. NO RESPIRATORY DISTRESS NOTED AT THIS TIME.W ILL CONTINUE TO MONITOR.
[2019-01-21] MEDS: LORazepam 2 MG/ML VIAL IVP PRN (04:09)
--- NOTE | 2019-01-21 05:00 | NUR ---
AM CARE GIVEN,ORAL CARE BED BATH AND F/C CARE. KEPT CLEAN AND DRY.
[2019-01-21] MEDS: PIPER/TAZO 3.375GM/D5W PREMIX 50 ML IV SCH ×3 (05:19→17:28)
[2019-01-21 06:25] LABS: ANION GAP 13.8 (8-16); CARBON DIOXIDE 24.1 mmol/L (21-32); CHLORIDE 103 mmol/L (98-107); GLUCOSE 97 mg/dL (74-106); POTASSIUM 3.9 mmol/L (3.5-5.1); SODIUM SERUM 137 mmol/L (136-145); UREA NITROGEN, BLOOD 50 mg/dL (7-18)
[2019-01-21 07:01] LABS: BASOPHILS % (AUTO) 0.1 % (0.0-2.0); HEMATOCRIT 41.4 % (36-52); HEMOGLOBIN 13.2 g/dL (12.0-18.0); LYMPHOCYTES # (AUTO) 0.5 K/uL (2.0-11.5); LYMPHOCYTES % (AUTO) 3.9 % (20.5-51.1); MEAN CORPUSCULAR HEMOGLOBIN 29 pg (27-31); MEAN CORPUSCULAR HGB CONC 32 g/dL (33-37); MEAN CORPUSCULAR VOLUME 89.3 fL (80-94); NEUTROPHILS # (AUTO) 11.1 K/uL (1.8-7.7); RED BLOOD CELL COUNT(AUTO) 4.64 MIL/uL (4.20-6.10); RED CELL DISTRIBUTION WIDTH 16.3 % (11.6-13.7); WHITE BLOOD COUNT (AUTO) 12.6 K/uL (4.8-10.8)
[2019-01-21 07:02] LABS: PLATELET COUNT (AUTO) 122 K/uL (140-450)
[2019-01-21] MEDS: BUDESONIDE 0.5 MG/2 ML NEBU INH SCH ×2 (07:08→19:18)
--- NOTE | 2019-01-21 07:20 | NUR ---
RECEIVED INTUBATED PT WITH A 7.5 ETT SECURED @24 TEETH/GUMS ON VENT. SETTINGS AC/VC 18, VT 500, PEEP 5 AND FIO2 30%. PT OPENS HIS EYES BUT IS UNABLE TO FOLLOW COMMANDS. THERE IS NO BITING OR KINKING OF ETT. VENT ALARMS ON AND FUNCTIONING. VENT IS PLUGGED INTO A RED OUTLET. WILL CONTINUE TO MONITOR.
--- NOTE | 2019-01-21 07:50 | NUR ---
RECEIVED REPORT FROM PM SHIFT NURSE, BEDSIDE MONITOR SHOWS A-FIB. PT OPENS EYES BUT UNABLE TO FOLLOW COMMANDS. ETT TO VENT WITH VENT SETTING AC MODE,TIDAL VOLUME 500,RATE 18,FIO2 30% AND PEEP 6, NO S/S OF RESP DISTRESS. OGT IN PLACE, PER PM NURSE FEEDING HOLD BECAUSE PT HAS SECRETION FROM MOUTH . PICC LINE TO RIGHT UPPER ARM DOUBLE LUMENS INTACT WELL. RUNNING 0.9 NS AT 100 CC/HR AND LEVOPHED AT 12 MCG/MIN. SITE INTACT AND PATENT. FLACC 0. ABD SOFT NON DISTENDED. SKIN INTACT WITH MULTIPLE BRUSES AND REDNESS ON BUE AND BLE. PT ON SOFT WRIST RESTRAINT D/T EPISODE TRYING TO REMOVE TUBING PER PM NURSE.F/C IN PLACE WITH ORANGE CLEAR COLOR. .KEPT CLEAN AND DRY.CONTINUE TO MONITOR CLOSELY.
--- NOTE | 2019-01-21 07:55 | NUR ---
BEDSIDE AND MADE CHANGES TO VENT. NEW VENT SETTINGS: AC/VC 15, VT 500, PEEP 5 AND FIO2 30%. NURSE BEDSIDE AND AWARE. WILL CONTINUE TO MONITOR.
--- NOTE | 2019-01-21 08:20 | NUR ---
TURNED AND REPOSITIONED PT. OG TUBE PLACEMENT CHECKED, IN THE RIGHT PLACE, RESIDUAL CHECKED , NONE. RESTARTED TUBE FEEDING, WILL CLOSE MONITORING PT.
[2019-01-21] MEDS: HYDROCORTISONE NA SUCC 100 MG/2 ML VIAL IV SCH ×2 (08:39→17:28)
[2019-01-21] MEDS: AZITHROMYCIN 250 MG TAB PO SCH (08:41)
[2019-01-21] MEDS: MECLIZINE 25 MG TAB PO SCH ×2 (08:44→21:08)
[2019-01-21] MEDS: ENOXAPARIN 40 MG/0.4 ML SYR SUBQ SCH (08:46)
[2019-01-21] MEDS: RIFAMPIN 300 MG CAP PO SCH (09:48)
[2019-01-21] MEDS: ETHAMBUTOL 400 MG TABLET PO SCH (09:49)
[2019-01-21] MEDS: MEGESTROL 400 MG/10 ML UDC PO SCH (09:52)
[2019-01-21] MEDS: DILTIAZEM 25 MG/5 ML VIAL IVP PRN ×2 (10:15→14:40)
--- NOTE | 2019-01-21 11:23 | NUR ---
RECEIVED PHONE CALL FROM PHARMACIST DUE TO PT RENAL FUNCTION, PHARMACIST ADJUSTED LEVAQUIN TO RENAL DOSE TO 250 MG WHICH MEANS STOP INFUSION NOW AND WASTE THE REST OF THEM, CARRIED OUT.
--- NOTE | 2019-01-21 11:33 | NUR ---
PT SLIGHTLY OPENS HIS EYES UNABLE TO FOLLOW COMMANDS AT THIS TIME. PT NOT IN ANY DISTRESS. WILL CONTINUE TO MONITOR.
[2019-01-21] MEDS: LEVOFLOXACIN 500 MG/D5W PREMIX 100 ML IV SCH (11:52)
--- NOTE | 2019-01-21 13:34 | NUR ---
PT PLACED ON SBT CPAP 5 PS 10 PER PHYSICIAN. NURSE MADE AWARE. WILL CONTINUE TO MONITOR.
[2019-01-21] MEDS ORDERED: FUROSEMIDE 20 MG/2 ML VIAL IVP SCH (14:30)
--- NOTE | 2019-01-21 14:52 | NUR ---
PT RETURNED TO AC/VC AFTER SBT TRIAL. PT BECAME TACHYPNEIC WITH INADEQUATE VT. NURSE MADE AWARE.
--- NOTE | 2019-01-21 17:34 | NUR ---
PT NOT IN ANY DISTRESS AT THIS TIME. ETT REMAINS SECURE WITH A PATENT AIRWAY. VENT ALARMS ON AND FUNCTIONING.
--- NOTE | 2019-01-21 18:10 | NUR ---
CALLED DR. MONTES REGARDING URINE OUTPUT 125 CC THE WHOLE SHIFT, PT ONLY PRODUCED 25 CC URINE AFTER LASIX GIVEN. PER DR. MONTES, DECREASED 0.9 % NS FROM 100 CC/HR TO 50 CC/HR. WILL CARRY OUT.
--- NOTE | 2019-01-21 19:20 | NUR ---
RECEIVED PT FROM AM NURSE. PT AT BED RESTING, EYES CLOSED, BREATHING REGULARLY, ETT TO VENT, FI02 30%, TV 500. R15. F 50. PEEP 5 AC/VC, PERRL 3MM, SLUGGISH, HEART RATE A. FIB, PULSES 2+ BILATERAL UPPER AND LOWER EXTREMITIES, CAP REFILL <3S, ABDOMEN SOFT, ROUND, NONDISTENDED, NONTENDER, OG TUBE TO FEEDING RUNNING 70 ML/HR, 110 WATER FLUSH Q4H, RESIDUAL 0 ML, BOWEL SOUNDS ACTIVE IN ALL QUADRANTS, GENERALIZED WEAKNESS IN ALL EXTREMITIES, BLADDER NON DISTENDED, FC IN PLACE, SKIN, DRY, ELASTIC, INTACT, WARM, DRY, APPROPRIATE COLOR TO ETHNICITY, HOB AT 30 DEGREES, SIDERAILS UP X2, CALL LIGHT WITHIN REACH.
--- NOTE | 2019-01-21 19:34 | NUR ---
RECEIVED PATIENT ENDOTRACHEALLY INTUBATED WITH 7.5 ETT AT 24 CM AT TEETH/GUM LINE TO MECHANICAL VENTILATOR AT SETTINGS: AC/VC 500, 15, +5, 30%. VENT CHECK DONE. VENT PLUGGED INTO RED OUTLET. VENT ALARMS ON AND AUDIBLE. AMBU BAG AT BEDSIDE. AIRWAY SECURE AND PATENT. SCHEDULED BREATHING TREATMENT ADMINISTERED. TOLERATED TX WELL. NO ADVERSE SIDE EFFECTS. NO RESPIRATORY DISTRESS NOTED AT THIS TIME. WILL CONTINUE TO MONITOR. Addendum: 01/21/19 at 2040 by Sharona Mustafa RT SUCTIONED MODERATE AMOUNT OF THICK, YELLOW SECRETIONS.
--- NOTE | 2019-01-21 20:14 | NUR ---
VAP ORAL CARE PERFORMED. SUCTIONED MODERATE AMOUNT OF WHITE SPUTUM. PT TOLERATED PROCEDURE WELL. PT AT STABLE CONDITION AT THIS TIME. HOB 30 DEGREES, SIDERAILS UP X2, CALL LIGHT WITHIN REACH. WILL CONTINUE TO MONITOR.
[2019-01-21] MEDS: FAMOTIDINE 20 MG/2 ML VIAL IV SCH (21:07)
--- NOTE | 2019-01-21 23:41 | NUR ---
VENT CHECK DONE; ALARMS ON AND AUDIBLE. SUCTIONED SCANT AMOUNT OF THICK, YELLOW SECRETIONS. NO RESPIRATORY DISTRESS NOTED AT THIS TIME. WILL CONTINUE TO MONITOR.
[2019-01-22] VITALS (24 sets, daily range): BP systolic 93–148; BP diastolic 49–81
[2019-01-22] MEDS: ALBUTEROL SULFATE/IPRATROPIU 3 ML SOL IH SCH ×4 (01:11→19:54)
--- NOTE | 2019-01-22 01:21 | NUR ---
VENT CHECK DONE. ALARMS ON AND AUDIBLE. SCHEDULED BREATHING TREATMENT ADMINISTERED. TOLERATED TX WELL WITHOUT ADVERSE SIDE EFFECTS. NO RESPIRATORY DISTRESS NOTED AT THIS TIME. WILL CONTINUE TO MONITOR.
[2019-01-22] MEDS: HYDROCORTISONE NA SUCC 100 MG/2 ML VIAL IV SCH ×3 (01:27→18:18)
--- NOTE | 2019-01-22 02:30 | NUR ---
PT AT BED, RESTING, EYES CLOSED, BREATHING REGULARLY, HOB 30 DEGREES, SIDERAILS UP X2, CALL LIGHT WITHIN REACH. PT AT STABLE CONDITION AT THIS TIME. WILL CONTINUE TO MONITOR.
[2019-01-22 06:12] LABS: ANION GAP 9.9 (8-16); CARBON DIOXIDE 26.7 mmol/L (21-32); CHLORIDE 103 mmol/L (98-107); CREATININE 1.9 mg/dL (0.7-1.3); GLUCOSE 140 mg/dL (74-106); POTASSIUM 3.6 mmol/L (3.5-5.1); SODIUM SERUM 136 mmol/L (136-145); UREA NITROGEN, BLOOD 53 mg/dL (7-18)
[2019-01-22 06:22] LABS: BASOPHILS # (AUTO) 0.2 K/uL (0.00-0.22); BASOPHILS % (AUTO) 1.4 % (0.0-2.0); HEMATOCRIT 40.6 % (36-52); HEMOGLOBIN 12.9 g/dL (12.0-18.0); LYMPHOCYTES # (AUTO) 0.2 K/uL (2.0-11.5); MEAN CORPUSCULAR HEMOGLOBIN 28 pg (27-31); MEAN CORPUSCULAR HGB CONC 32 g/dL (33-37); MEAN CORPUSCULAR VOLUME 89.5 fL (80-94); MONOCYTES # (AUTO) 0.8 K/uL (0.8-1.0); MONOCYTES % (AUTO) 6.8 % (1.7-9.3); NEUTROPHILS # (AUTO) 10.2 K/uL (1.8-7.7); NEUTROPHILS % (AUTO) 89.8 % (42.2-75.2); PLATELET COUNT (AUTO) 85 K/uL (140-450); RED BLOOD CELL COUNT(AUTO) 4.54 MIL/uL (4.20-6.10); RED CELL DISTRIBUTION WIDTH 16.6 % (11.6-13.7); WHITE BLOOD COUNT (AUTO) 11.4 K/uL (4.8-10.8)
[2019-01-22] MEDS: PIPER/TAZO 3.375GM/D5W PREMIX 50 ML IV SCH ×4 (06:50→18:19)
--- NOTE | 2019-01-22 07:20 | NUR ---
CHANGE OF SHIFT REPORT GIVEN TO AM NURSE FOR CONTINUITY OF CARE. PT AT STALE CONDITION AT THIS TIME.
--- NOTE | 2019-01-22 07:20 | NUR ---
RECEIVED REPORT FROM PM SHIFT NURSE, BEDSIDE MONITOR SHOWS A-FIB. PT CLOSED EYES AT THIS MOMENT. ETT TO VENT WITH VENT SETTING AC MODE,TIDAL VOLUME 500,RATE 15,FIO2 30% AND PEEP 5, NO S/S OF RESP DISTRESS. OGT IN PLACE, VITAL AF1.2 RUNNING AT 70 CC/HR WITH H20 FLUSH AT 110 CC/HR Q 4 HRS . PICC LINE TO RIGHT UPPER ARM DOUBLE LUMENS INTACT WELL. RUNNING 0.9 NS AT 50 CC/HR . SITE INTACT AND PATENT. FLACC 0. PULSES 2+ BILATERAL UPPER EXTREMITIES AND LOWER EXTREMITIES, CAP REFILL LESS THAN 3 SECONDS. ABD SOFT NON DISTENDED. SKIN INTACT WITH MULTIPLE BRUSES AND REDNESS ON BUE AND BLE. PT ON SOFT WRIST .F/C IN PLACE WITH ORANGE CLEAR COLOR. .KEPT CLEAN AND DRY.CONTINUE TO MONITOR CLOSELY.
[2019-01-22] MEDS: BUDESONIDE 0.5 MG/2 ML NEBU INH SCH ×2 (07:53→19:54)
--- NOTE | 2019-01-22 07:53 | NUR ---
RECEIVED ON A Compliance 11APE R860 VENTILATOR PLUGGED INTO RED OUTLET TOLERATING WELL WITHOUT INCIDENT TO AN ENDOTRACHEAL TUBE #7.5 SECURED AT 24cm WITH AN ANCHOR FAST CUFF PRESSURE CHECKED NOTED AMBU BAG NOTED AT BEDSIDE NO EVIDENCE OF SOB NOTED EQUAL CHEST RISE AIRWAY PATENT
--- NOTE | 2019-01-22 08:00 | NUR ---
TURNED AND REPOSITIONED PT. ORAL CARE GIVEN, DAVID CARE GIVEN. BLADDER NON DISTENDED. NO S/S OF RESPIRATORY DISTRESS NOTED.
--- NOTE | 2019-01-22 08:30 | NUR ---
PT had some secretion in pt's mouth, suctioned pt and oral care given. turned and repositioned pt with charge nurse, bed bath given. family at bedside.
[2019-01-22] MEDS: ENOXAPARIN 40 MG/0.4 ML SYR SUBQ SCH ×2 (09:00→09:14)
--- NOTE | 2019-01-22 09:00 | NUR ---
HOLD LOVENOX PER DR. MONTES DUE TO PT PLATELET 85.
[2019-01-22] MEDS: MEGESTROL 400 MG/10 ML UDC PO SCH (09:10)
[2019-01-22] MEDS: ETHAMBUTOL 400 MG TABLET PO SCH (09:10)
[2019-01-22] MEDS: RIFAMPIN 300 MG CAP PO SCH (09:11)
[2019-01-22] MEDS: AZITHROMYCIN 250 MG TAB PO SCH (09:12)
[2019-01-22] MEDS: MECLIZINE 25 MG TAB PO SCH ×2 (09:12→20:29)
--- NOTE | 2019-01-22 09:45 | NUR ---
SPOKE TO [facility] [phone], FAXED CLINICALS TO [phone].
[2019-01-22] MEDS: DILTIAZEM 25 MG/5 ML VIAL IVP PRN ×3 (10:05→21:26)
--- NOTE | 2019-01-22 10:05 | NUR ---
PLACED ON CPAP/SBT WEANING TRIALS LOC QUIET EASILY AWAKENS UNABLE TO FOLLOW LURE MAKER VERBAL COMMANDS DURING WEANING PARAMETERS PRESENTING WITH SpTV DEMETRIA THAN 300 L INCREASED PS TO 12 cmH2O TO ACHIEVE SpTV GREATER THAN 6 ml/L = 327 L LURE MAKER TO WEAN PS TOLERATED BREATH SOUNDS CLEAR BILATERAL WITH GOOD AERATION THROUGHOUT BILATERAL LUNG WARD AIRWAY PATENT JAYLIN/RN NOTIFIED OF TRAIL
--- NOTE | 2019-01-22 11:00 | NUR ---
THE WHOLE BED CHANGED DUE TO SOME LEAKING URINE NOTED IN PT'S BED. PT TOLERATED WELL.
--- NOTE | 2019-01-22 12:01 | NUR ---
TOLERATING CPAP/SBT RIALS WELL WITHOUT ADVERSE REACTIONS NOTED EQUAL CHEST RISE WITH GOOD AERATION THROUGHOUT BILATERAL LUNG WARD AIRWAY PATENT
--- NOTE | 2019-01-22 12:02 | NUR ---
01/22/19 RD FOLLOW UP COMPLETED PLEASE REFER TO NUTRITION ASSESSMENT UNDER CARE ACTIVITY FOR ESTIMATED NUTRITIONAL NEEDS. 1. CONTINUE VITAL AF 1.2 AT GOAL RATE 70 ML/HR AND GOAL VOLUME 1680 ML/DAY -THIS WILL PROVIDE 2016 KCAL AND 126 GM OF PROTEIN WHICH MEETS 100% OF CALORIE AND PROTEIN NEEDS. 2. CONTINUE FREE WATER FLUSH OF [address] TO FOLLOW-UP 2-3 DAYS, HIGH RISK MOLLY ZHENG RD
[2019-01-22] MEDS: traMADol 50 MG TAB PO PRN (12:42)
--- NOTE | 2019-01-22 13:13 | NUR ---
STABLE EQUAL CHEST RISE GOOD AERATION THROUGHOUT LUNG WARD POST HHN THERAPY TOLERATED PS TO 10 cmH20 DRUM SEALER TO NOTIFY RN
--- NOTE | 2019-01-22 13:23 | NUR ---
DR. MONTES IN TO SEE PATIENT, UPDATED ON PATIENT'S CONDITION. WILL FOLLOW UP ON ANY ORDERS.
--- NOTE | 2019-01-22 13:25 | NUR ---
REVIEWED CPAP/SBT WEANING TRIALS WITH DR. MONTES NEW ORDERS: WEAN PATIENT TOLERATED PLACE BACK ON AC AT NIGHT TO REST PATIENT START CPAP/SBT TRIALS IN AM
--- NOTE | 2019-01-22 14:16 | NUR ---
BEDSIDE MONITOR SHOWS HR 125, BP 113/61. O2 SATS 99%. CARDIZEM 10 MG GIVEN ORDERED.
--- NOTE | 2019-01-22 14:25 | NUR ---
PROJECT MANAGER/DESIGN MANAGER CAME IN TO CHECK PT. NOTIFIED PT'S URINE OUTPUT AROUND 300 CC FROM THE BEGINNING OF THE SHIFT AND PT C/O ABD PAIN. ALSO NOTIFIED THERE SOME LEAKING FROM F/C, PER " DO BLADDER SCAN" BLADDER SCAN SHOWED 471 CC, PER DR. RIVERA, INSERT NEW CATH AND SEND URINE SAMPLE TO LAB FOR CULTURE.
--- NOTE | 2019-01-22 14:30 | NUR ---
PT'S SON JOSSUE TALKED TO DR. MONTES ON THE PHONE REGARDING CT REPORT AND PT'S SITUATION.
--- NOTE | 2019-01-22 15:00 | NUR ---
BLADDER SCAN SHOWS URINE 27 CC.
[2019-01-22] MEDS: LORazepam 2 MG/ML VIAL IVP PRN (15:34)
--- NOTE | 2019-01-22 15:34 | NUR ---
PT AGITATED, KEPT MOVING , BEDSIDE MONITOR SHOWS HR 120S , ATIVAN 0.5 MG GIVEN TO PT ORDERED. .
--- NOTE | 2019-01-22 15:53 | NUR ---
APNEA AT 20 SECONDS X 2 WITHIN 3 MIN PERIOD DEFAULTING TO AC PATTERNMAKER HAND TO REST PATIENT AT THIS TIME WILL ATTEMPT CPAP/SBT TRIAL AT A LATER TIME TOTAL WEANING TIME 5 HRS 30 MINS
--- NOTE | 2019-01-22 16:34 | NUR ---
PT SLEEPING QUIETLY IN BED, NO S/S OF RESPIRATORY DISTRESS NOTED. BEDSIDE MONITOR SHOWS SR 97.
--- NOTE | 2019-01-22 17:51 | NUR ---
STABLE NO DISTRESS NOTED GOOD CHEST RISE AIRWAY PATENT
--- NOTE | 2019-01-22 18:25 | NUR ---
DR. PLEITEZ IS HERE TO EXAMINE PATIENT, UPDATED PATIENT'S CONDITION. DR. PLEITEZ SPOKE WITH DR. MONTES, STATES TO TRANSFER PATIENT TO HIGHER LEVEL OF CARE, RADIO BOARD OPERATOR ANNOUNCER NATHALIA IS AWARE.
[2019-01-22] MEDS: NACL 0.9% 1,000 ML IV SCH (19:23)
--- NOTE | 2019-01-22 19:27 | NUR ---
RECEIVED BSSR FROM JAYLIN MAURICIO FOR CONTINUITY OF CARE. PATIENT IS ETT TO VENT WITH SETTINGS OF AC 15, FIO2 30%, TV 400, AND PEEP 5. PATIENT RESTING IN BED WITH EYES CLOSED, BUT LOCALIZES TO STIMULI. BREATH SOUNDS ARE CLEAR TO AUSCULTATION. ACTIVE BOWEL SOUNDS NOTED. THERE IS AN OGT IN PLACE WITH PATIENT RECEIVING VITAL 1.2 AF AT GOAL RATE OF 70 ML/HR. PATIENT TOLERATING FEEDING WITH 10 ML OF RESIDUAL NOTED. BILATERAL SOFT WRIST RESTRAINTS IN PLACE R/T PATIENT DISRUPTING MEDICAL CARE. BAUGH CATHETER IN PLACE DRAINING TO GRAVITY WITH SMALL AMOUNT OF ORANGE TINGED YELLOW URINE NOTED. VS WNL AND PATIENT IS AFEBRILE. INITIAL ASSESSMENT COMPLETED. HOB AT 30 DEGREES WITH BED IN LOWEST POSITION. CONTINUE TO MONITOR PATIENT.
--- NOTE | 2019-01-22 19:45 | NUR ---
PAGED DR. MONTES TO CLARIFY TRANSFER TO HIGHER LEVEL OF CARE TO SEE IF THERE WAS A SPECIFIC FACILITY. DR WINSLOW GAGE MAKER; STATED THAT [facility] DR. DENISE HAILE OR [facility] DR MACKEY. WILL FOLLOW UP WITH POSSIBLE TRANSFER FACILITIES.
[2019-01-22] MEDS: FAMOTIDINE 20 MG/2 ML VIAL IV SCH (20:23)
--- NOTE | 2019-01-22 20:26 | NUR ---
TOLERATED DUE MEDICATIONS. VS WNL.
--- NOTE | 2019-01-22 20:30 | NUR ---
CALLED [facility], CARPENTER'S ASSISTANT XIAO MADE AWARE. FACE SHEET & H/P FAXED, ACCEPTING MD: DR DENISE HAILE. AWAITING BED AVAILABILITY, INSURANCE APPROVAL.
--- NOTE | 2019-01-22 21:13 | NUR ---
PM CARE RENDERED. BED BATH GIVEN. GOWN AND LINENS CHANGED. PATIENT REPOSITIONED FOR COMFORT. VAP ORAL CARE GIVEN WITH CHLORHEXIDINE RINSE. MINIMAL SECRETIONS NOTED DURING ORAL SUCTIONING. VSS. HOB AT 30 DEGREES WITH BED IN LOWEST POSITION. CONTINUE TO MONITOR PATIENT.
--- NOTE | 2019-01-22 21:30 | NUR ---
CALLED [facility], SPOKE WITH LEXI REGARDING POSSIBLE TRANSFER. H/P FACE SHEET FAXED OVER. AWAITING APPROVAL. WILL CONTINUE TO OBSERVE.
--- NOTE | 2019-01-22 21:46 | NUR ---
D: PATIENT'S HR SUSTAINING AT 107 TO 111. A: CARDIZEM 10MG IVP PRN ADMINISTERED AT 2126. R: HR IS IN THE 60 TO 70S. CONTINUE TO MONITOR PATIENT.
--- NOTE | 2019-01-22 22:15 | NUR ---
LIZETT HDEZSLITTING AND SHIPPING SUPERVISOR FROM [place] CALLED BACK, AWAITING ACCEPTING PHYSICIAN DR. DENISE HAILE APPROVAL. WILL CONTINUE TO OBSERVE.
--- NOTE | 2019-01-22 22:45 | NUR ---
LEXI, ARMATURE REPAIRER, [facility], CALLED BACK SHE IS AWAITING ACCEPTING RECORDER OF DEEDS AND NEUROSURGEON. WILL CONTINUE TO OBSERVE.
--- NOTE | 2019-01-22 23:22 | NUR ---
LEXI FROM [facility] CALLED, DISCUSSES CASE WITH SPINNING LATHE OPERATOR HYDRAULIC DR. MANOLO BANKS, AND AFTER REVIEW STATED THEY ARE DECLINING THE CASE.
[2019-01-23] VITALS (23 sets, daily range): BP systolic 88–148; BP diastolic 30–98
[2019-01-23] MEDS: PIPER/TAZO 3.375GM/D5W PREMIX 50 ML IV SCH ×4 (00:07→17:28)
[2019-01-23] MEDS: HYDROCORTISONE NA SUCC 100 MG/2 ML VIAL IV SCH ×3 (00:11→17:28)
[2019-01-23] MEDS: NACL 0.9% 1,000 ML IV SCH (00:22)
[2019-01-23] MEDS: ALBUTEROL SULFATE/IPRATROPIU 3 ML SOL IH SCH ×4 (01:29→19:35)
--- NOTE | 2019-01-23 02:12 | NUR ---
VAP CARE RENDERED. ORAL SUCTIONING PROVIDED. SMALL SECRETIONS NOTED. REPOSITIONED FOR COMFORT. VSS AND AFEBRILE. BILATERAL SOFT WRIST RESTRAINTS REMAIN IN PLACE. HOB AT 30 DEGREES WITH BED IN LOWEST POSITION. CONTINUE TO MONITOR PATIENT.
--- NOTE | 2019-01-23 04:11 | NUR ---
ROUTINE ORAL AND VAP CARE RENDERED. TOLERATED WELL. REPOSITIONED FOR COMFORT. VSS. HOB AT 30 DEGREES WITH BED IN LOWEST POSITION. CONTINUE TO MONITOR PATIENT.
[2019-01-23] MEDS: DILTIAZEM 25 MG/5 ML VIAL IVP PRN ×2 (04:38→15:25)
--- NOTE | 2019-01-23 05:32 | NUR ---
D: BP 161/86 AND HR 106 AT 0438. A: CARDIZEM 10MG IVP PRN ADMINISTERED. R: BP 135/98 AND HR 79 AT 0532. CONTINUE TO MONITOR PATIENT.
--- NOTE | 2019-01-23 06:06 | NUR ---
PATIENT REPOSITIONED FOR COMFORT. VSS. HOB AT 30 DEGREES WITH BED IN LOWEST POSITION.
[2019-01-23 06:16] LABS: BASOPHILS # (AUTO) 0.1 K/uL (0.00-0.22); BASOPHILS % (AUTO) 0.5 % (0.0-2.0); HEMATOCRIT 37.2 % (36-52); HEMOGLOBIN 12.1 g/dL (12.0-18.0); LYMPHOCYTES # (AUTO) 0.1 K/uL (2.0-11.5); LYMPHOCYTES % (AUTO) 1.3 % (20.5-51.1); MEAN CORPUSCULAR HEMOGLOBIN 29 pg (27-31); MEAN CORPUSCULAR HGB CONC 33 g/dL (33-37); MEAN CORPUSCULAR VOLUME 89.2 fL (80-94); MONOCYTES # (AUTO) 1.1 K/uL (0.8-1.0); MONOCYTES % (AUTO) 9.9 % (1.7-9.3); NEUTROPHILS # (AUTO) 9.5 K/uL (1.8-7.7); NEUTROPHILS % (AUTO) 88.3 % (42.2-75.2); PLATELET COUNT (AUTO) 99 K/uL (140-450); RED BLOOD CELL COUNT(AUTO) 4.17 MIL/uL (4.20-6.10); RED CELL DISTRIBUTION WIDTH 16.8 % (11.6-13.7); WHITE BLOOD COUNT (AUTO) 10.7 K/uL (4.8-10.8)
[2019-01-23 06:34] LABS: ANION GAP 9.7 (8-16); CHLORIDE 106 mmol/L (98-107); CREATININE 1.7 mg/dL (0.7-1.3); GLUCOSE 151 mg/dL (74-106); POTASSIUM 3.7 mmol/L (3.5-5.1); SODIUM SERUM 140 mmol/L (136-145); UREA NITROGEN, BLOOD 53 mg/dL (7-18)
--- NOTE | 2019-01-23 06:40 | NUR ---
FOLLOWED UP WITH [facility] BAXTER, AWAITING ACCEPTING PHYSICIAN DR. Ratna HAILE. WILL CONTINUE TO OBSERVE.
--- NOTE | 2019-01-23 06:49 | NUR ---
ROUTINE ORAL CARE RENDERED. SMALL AMOUNT OF SECRETIONS SUCTIONED. REPOSITIONED FOR COMFORT. VSS. HOB AT 30 DEGREES WITH BED IN LOWEST POSITION. BILATERAL SOFT WRIST RESTRAINTS REMAIN IN PLACE.
--- NOTE | 2019-01-23 07:15 | NUR ---
RECEIVED BESIDE REPORT FROM AVIATION ELECTRICAL TECHNICIAN RN. AROUSED PT BY SHAKING. PT IS ABLE TO FOLLOW SOME SIMPLE COMMANDS. PT IS ETT TO VENT, 24 TO TEETH, WITH SETTINGS OF AC/VC RR15, FIO2 30%, TV 500, AND PEEP 5. LUNG SOUNDS RHONCHI TO AUSCULTATION. BOWEL SOUNDS ACTIVE. HEART SOUND S1-S2 HEARD, AFIB ON MONITOR. OGT IN PLACE WITH PATIENT RECEIVING VITAL 1.2 AF RUNNING AT 70 ML/HR. PT ON BILATERAL SOFT WRIST RESTRAINTS, CAP REFILL LESS THAN 3 SECS. RIGHT HAND HAS NON PITTING EDEMA. BAUGH CATHETER IN PLACE DRAINING ORANGE-RED URINE. PT IS ON TB MEDS. PT IS AFEBRILE. HOB AT 30 DEGREES WITH BED IN LOWEST POSITION. WILL CONTINUE TO MONITOR PT
--- NOTE | 2019-01-23 07:17 | NUR ---
BSSR GIVEN TO BULL MAURICIO AND MG MAURICIO FOR CONTINUITY OF CARE.
--- NOTE | 2019-01-23 07:43 | NUR ---
RECEIVED INTUBATED PT WITH A 7.5 ETT SECURED @24 TEETH/GUMS ON VENT. SETTINGS AC/VC 15, VT 500, PEEP 5 AND FIO2 30%. PT SUCTIONED OBTAINED SMALL AMOUNT OF THICK YELLOW SECRETIONS, AIRWAY IS PATENT AND ETT IS SECURE. THERE IS NO BITING OR KINKING OF ETT. PT IS NOT ALERT BUT NOT IN ANY DISTRESS AT THIS TIME. VENT ALARMS ON AND FUNCTIONING. AMBU BAG IS PRESENT NEAR BEDSIDE. WILL CONTINUE TO MONITOR.
[2019-01-23] MEDS: BUDESONIDE 0.5 MG/2 ML NEBU INH SCH ×2 (07:44→19:35)
--- NOTE | 2019-01-23 08:15 | NUR ---
AND SON CAME IN TO SEE PT. MADE AWARE ABOUT PLAN TO TRANSFER TO [facility] AND WAITING FOR OUR DOCTOR TO CO-ORDINATE WITH OTHER DOCTOR RECEIVING PT IN [facility]. VERBALIZED UNDERSTANDING. WANTS TO BE CALLED WHEN DOCTOR IN TO SEE PT. WILL CALL WHEN DOCTOR IN TO SEE PT.
[2019-01-23] MEDS: ENOXAPARIN 40 MG/0.4 ML SYR SUBQ SCH ×2 (09:00→10:00)
--- NOTE | 2019-01-23 09:00 | NUR ---
OPTIFOAM SEEN ON THE SACRAL AREA FOR PROPHYLAXIS, SKIN INTACT.
--- NOTE | 2019-01-23 09:20 | NUR ---
G TUBE FEEDING RESIDUAL 0ML.
--- NOTE | 2019-01-23 09:24 | NUR ---
PT SUCTIONED OBTAINED SMALL AMOUNT OF THICK YELLOW SECRETIONS, AIRWAY IS PATENT AND ETT IS SECURE. PT NOT IN ANY DISTRESS AT THIS TIME. WILL CONTINUE TO MONITOR.
[2019-01-23] MEDS: MEGESTROL 400 MG/10 ML UDC PO SCH (09:28)
[2019-01-23] MEDS: MECLIZINE 25 MG TAB PO SCH ×2 (09:29→20:53)
[2019-01-23] MEDS: RIFAMPIN 300 MG CAP PO SCH (09:29)
[2019-01-23] MEDS: AZITHROMYCIN 250 MG TAB PO SCH (09:30)
[2019-01-23] MEDS: ETHAMBUTOL 400 MG TABLET PO SCH (09:30)
--- NOTE | 2019-01-23 09:50 | NUR ---
PAGED DR. TIJERINA. WAITING FOR CALL BACK.
--- NOTE | 2019-01-23 10:00 | NUR ---
SPOKE WITH DR TIJERINA OVER THE PHONE, DR TIJERINA SAID WILL CALL DR HAILE AT [facility] REGARDING TRANSFER. SAID NO TO PNA VAC. DR WANTS TO RENEW SOFT WRIST RESTRAINT. REPORT PLATELET 99, ASKED DR TIJERINA IF HE STILL WANTS TO GIVE LOVENOX, DR TIJERINA SAID YES, GIVE IT.
--- NOTE | 2019-01-23 13:21 | NUR ---
PT SUCTIONED OBTAINED SMALL AMOUNT OF CLEAR THICK SECRETIONS, AIRWAYS IS PATENT AND ETT IS SECURE. PT NOT IN ANY DISTRESS AT THIS TIME. WILL CONTINUE TO MONITOR.
--- NOTE | 2019-01-23 13:30 | NUR ---
PT PLACED ON SBT. CPAP 5 PS 10 FIO2 30%. FAMILY IS BEDSIDE. WILL CLOSELY MONITOR PT.
--- NOTE | 2019-01-23 13:56 | NUR ---
DR TIJERINA SEEN PT. MADE DR TIJERINA AWARE PT HASN'T HAD BM FOR [address] TIJERINA SAID PT WILL BE TRANSFERRED TO [facility] TODAY, LET THEM HANDLE IT THERE.
[2019-01-23] MEDS ORDERED: ATI2I IVP (13:57)
[2019-01-23] MEDS ORDERED: RIFA300C6 PO (13:57)
[2019-01-23] MEDS ORDERED: SC100I IV (13:57)
[2019-01-23] MEDS ORDERED: [UNRECOGNIZED DRUG - CODE] IVP (13:57)
[2019-01-23] MEDS ORDERED: ACET-1182 GT (13:57)
[2019-01-23] MEDS ORDERED: MECL-272 PO (13:57)
[2019-01-23] MEDS ORDERED: ALBU3SOL83 IH ×2 (13:57)
[2019-01-23] MEDS ORDERED: ONDA2SOL45 IVP (13:57)
[2019-01-23] MEDS ORDERED: PUL.5N INH (13:57)
[2019-01-23] MEDS ORDERED: TRAM50TA3 PO (13:57)
[2019-01-23] MEDS ORDERED: LOV40I SUBQ (13:57)
[2019-01-23] MEDS ORDERED: PEP20I IV (13:57)
[2019-01-23] MEDS ORDERED: [UNRECOGNIZED DRUG - CODE] IVP (13:57)
[2019-01-23] MEDS ORDERED: AZIT250T11 PO (13:57)
--- NOTE | 2019-01-23 14:05 | NUR ---
DR NASH UPDATED PT'S FAMILY ON PT'S CONDITION.
[2019-01-23] MEDS ORDERED: OSMITROL 25% 12.5 GM/50 ML VIAL IV SCH ×2 (14:30→21:00)
--- NOTE | 2019-01-23 15:01 | NUR ---
CALLED [facility] [phone] TO FOLLOW UP FOR BED AVAILABILITY, SPOKE WITH GUS. GUS SAID WILL CALL US BACK.
--- NOTE | 2019-01-23 15:32 | NUR ---
PT RETURNED TO AC/VC 15, VT 500, PEEP 5 AND FIO2 30% DUE TO INADEQUATE VT AND INADEQUATE WEANING PARAMETERS: NIF (-8), VC 290 ml. WILL CONTINUE TO MONITOR.
--- NOTE | 2019-01-23 15:33 | NUR ---
GOT PT'S HOME MED ETHAMBUTOL, RIFAMPIN AND PRO AIR HFA FROM PHARMACY. HANDED ALL 3 MEDS TO JARVIS SOHAILFRANCISCO.
--- NOTE | 2019-01-23 15:37 | NUR ---
ffup with station supervisor and will give a bed.
--- NOTE | 2019-01-23 15:38 | NUR ---
RECEIVED CALL FROM [facility]. PROVIDED BED ICU 6 AND CALL NUMBER #[phone] TO GIVE REPORT. RN MADE AWARE.
--- NOTE | 2019-01-23 15:43 | NUR ---
VENT CHECK COMPLETED. PT NOT IN ANY DISTRESS AT THIS TIME WITH FAMILY BEDSIDE. ETT REMAINS SECURE. WILL CONTINUE TO MONITOR.
--- NOTE | 2019-01-23 15:52 | NUR ---
CALLED [facility] # . SPOKE TO JENIFER AND MADE ARRANGEMENT FOR CCRT TRANSPORTATION. JENIFER SAID CARD PLACER WILL BE AT 1900. RN MADE AWARE.
--- NOTE | 2019-01-23 15:57 | NUR ---
DR. STEVENSON CALLED. MADE HIM AWARE THAT PT WILL BE TRANSFERRED TO [place] BY 1900 TODAY.
--- NOTE | 2019-01-23 16:35 | NUR ---
PER DR MONTES STATED DONT BRADY PT TO [facility] PER NEUROSURGEON IS UNCOMFORTABLE.INVOLVE CASEMANAGER AND TRANSFER TO [facility] OR OTHER FACILITY TO ACCEPT.NOTIFIED COMPUTER ENGINEERING TECHNOLOGIST AND DIRECTOR OF INCOME TAX, COMPUTER ENGINEERING TECHNOLOGIST WILL CALL HOSPITAL THERE IS NO PIANO BUILDER AT [facility]
--- NOTE | 2019-01-23 16:39 | NUR ---
RECEIVED CALL FROM CHARLES HDEZLOGISTICS DIRECTOR FROM [place]. CHARLES SAID DR. DENISE HAILE DECLINED TO RECEIVE PT TO [place]. DR. HAYDENAMI AWARE ABOUT CANCELLATION OF PT TRANSFER TO [place]. LOGISTICS DIRECTOR AUSTIN BEDOLLA ALSO MADE AWARE.
--- NOTE | 2019-01-23 16:47 | NUR ---
PAGED DR TIJERINA, AND DR TIJERINA CALLED BACK. MADE DR TIJERINA AWARE THAT DR BROWN CALLED AND STATED NEURO-SURGEON FEEL UNCOMFORTABLE TAKING THE PT. DR TIJERINA SAID WE DON'T NEED A NEURO SURGEON, JUST TRANSFER PT TO [place] FOR MRI HEAD AND DR HAILE'S GROUP AND DR WINSLOW CAN FOLLOW UP THERE.
--- NOTE | 2019-01-23 17:00 | NUR ---
FAMILY MADE AWARE THAT PATIENT IS NOT GOING TO [facility] BECAUSE PER DR MONTES NEUROSURGEON IS UNCOMFORTABLE.FAMILY WANTED TO TALK TO .
--- NOTE | 2019-01-23 17:01 | NUR ---
CALLED [facility] [phone] AND SPOKE TO CUSTOMS IMPORT SPECIALIST CLARITA. CLARITA SAID THEY DO NOT HAVE NURSE FOR THIS PT. SHE SAID SHE WILL TALK TO CHARLES. TOLD ME TO CALL BACK AFTER 2 HOURS.
--- NOTE | 2019-01-23 17:10 | NUR ---
DR TIJERINA CALLED, STATED DR HAILE WILL NOT TAKE THE PT BECAUSE SHE DOESN'T FEEL COMFORTABLE WITHOUT NEUROSURGEON ACCEPTING THE PT. DR TIJERINA ORDERED TO FIND OTHER TERTIARY CARE FOR NEUROSURGEON EVALUATION AND MRI HEAD. DR TIJERINA SAID TO TRY [place] AND OTHER FACILITIES.
--- NOTE | 2019-01-23 17:19 | NUR ---
PT REMAINS ON DOCUMENTED VENT SETTINGS. PT NOT IN ANY DISTRESS AT THIS TIME. VENT ALARMS ON AND FUNCTIONING. AIRWAY IS SECURE AND PATENT. FAMILY IS BEDSIDE.
--- NOTE | 2019-01-23 17:20 | NUR ---
PROTECTIVE SIGNAL OPERATOR AUSTIN TALKING TO FAMILY REGARDING THE SITUATION.
--- NOTE | 2019-01-23 17:25 | NUR ---
PAGED DR TIJERINA, OBTAINED DR TIJERINA'S DIRECT PHONE FOR TRANSFER AND GIVE TO CHARGE NURSE BALTAZAR. DR TIJERINA TALKED TO PT'S FAMILY JOSSUE JARVIS OVER THE PHONE, ADDRESSED HIS CONCERN.
--- NOTE | 2019-01-23 17:30 | NUR ---
CALLED [facility] # [phone]. SPOKE TO LATRICIA REGARDING BED AVAILABLE TO TRANSFER PT FOR HIGHER LEVEL OF CARE. REQUESTED TO FAX PT INFORMATION. FAXED REQUIRED INFORMATION TO [facility]. FAMILY GAVE CONSENT TO DISCLOSE INFORMATION TO [facility]. WAITING FOR CALL BACK.
--- NOTE | 2019-01-23 17:32 | NUR ---
[facility] KIANNA CALLED STATING DR MONTES IS OUT OF TOWN. DR TIJERINA IS INTERNET TECHNOLOGY MANAGER.
--- NOTE | 2019-01-23 17:50 | NUR ---
ASKED PT IF HE HAS PAIN, PT NODDED. FLACC 4. WILL ADMINISTER PAIN MEDS.
[2019-01-23] MEDS: traMADol 50 MG TAB PO PRN (17:51)
--- NOTE | 2019-01-23 18:22 | NUR ---
SON WANTS US TO FOLLOW UP WITH [facility] FOR TRANSFER. CALLED #[phone]. SPOKE TO Sidney CASTILLO. FAXED PT INFORMATION TO ANNA Little. ANNA SAID SHE WILL REVIEW PT INFORMATION AND GIVE US CALL.
--- NOTE | 2019-01-23 18:57 | NUR ---
CALLED [facility] #[phone], SPOKE TO TERESA. TERESA SAID THEY CAN NOT ACCEPT THE PT.
--- NOTE | 2019-01-23 19:25 | NUR ---
REPORT GIVEN TO WING MAILER MACHINE OPERATOR KIT RN, PT IN STABLE CONDITION.
--- NOTE | 2019-01-23 19:30 | NUR ---
RECEIVED PATIENT ON CURRENT SETTINGS: AC/VC 500 RATE 15 PEEP 5 FIO2 30%. PATIENT IS INTUBATED WITH A SIZE 7.5 ET TUBE THAT IS SECURED AT 24CM AT THE LIP WITH AN ANCHORFAST. ET TUBE IS AT ORAL RIGHT, OBSERVED NO REDNESS OR SKIN BREAKDOWN. PT VOMITED PRIOR TO STARTING HHN TX, SUCTIONED MOUTH WITH CARISSA AND RN AT BEDSIDE COMPLETED ORAL CARE. B/S: COARSE IN THE UPPER LOBES, MORE AUDIBLE ON THE LEFT SIDE. CLEAR IN THE BASES. SUCTIONED PATIENT AND RECEIVED SMALL, THIN, YELLOW SECRETIONS. INLINE TREATMENT GIVEN WITH NO INCIDENT. VENT AND ALARM SETTINGS VERIFIED. AMBU BAG AT BEDSIDE.
--- NOTE | 2019-01-23 19:45 | NUR ---
CALLED [facility]. SPOKE WITH ANNA FROM TRANSFER CENTER, ACCORDING TO HER FIRST AN ACCEPTING DOCTOR IS NEEDED AND THEN TO CONTACT THE PT'S INSURANCE TO CHECK IF THEY WILL COVER. WILL FOLLOW-UP.
--- NOTE | 2019-01-23 20:00 | NUR ---
CALLED [facility], SPOKE WITH GIVEN SOME INFORMATION REGARDING THE PT AND WAS INSTRUCTED TO FAX PATIENT'S RECORDS TO BE REVIEWED BY THEIR PHYSICIAN. FAX NUMBER . PHONE NUMBER .
--- NOTE | 2019-01-23 20:08 | NUR ---
RECEIVED A CALL FROM [facility], SPOKE WITH MELI. ACCORDING TO HER PT WILL GO TO UN[address]. RECEIVING DOCTOR WILL BE DR. JARA. NURSE TO CALL FOR REPORT.
--- NOTE | 2019-01-23 20:17 | NUR ---
PAGED DR. [place], DR. NASH CURRENTLY COVERING. WAITING FOR CALL BACK.
--- NOTE | 2019-01-23 20:19 | NUR ---
RECEIVED A CALL BACK FROM DR. NASH, INFORMED HIM REGARDING [facility] ACCEPTING THE PT. PER DR. NASH, TRANSFER PT. WILL SET UP TRANSPORTATION.
[2019-01-23] MEDS: FAMOTIDINE 20 MG/2 ML VIAL IV SCH (20:36)
--- NOTE | 2019-01-23 21:05 | NUR ---
GIVEN REPORT TO GERARDO MAURICIO FROM [facility] ICU.
[2019-01-23] MEDS ORDERED: OSMITROL 25% 12.5 GM/50 ML VIAL IV ONE (21:23)
--- NOTE | 2019-01-23 21:27 | NUR ---
GIVEN REPORT TO EMR FOR PT TRANSPORT TO [facility]. FAMILY AT BEDSIDE. PT AT STABLE CONDITION AT THIS TIME.
--- NOTE | 2019-01-23 21:42 | NUR ---
PT LEFT THE UNIT WITH [facility]. ALL PT'S BELONGINGS WERE GIVEN TO THE PT'S FAMILY WHICH ARE AT BEDSIDE.
== END 2019-01-23 21:42 | disposition short-term general hospital (02) | DRG 870 ==
LOC: MED 08:08 → MTU 10:12 → MIC 01-19 07:29
PROVIDERS: ADMIT Internal Medicine; ATTEND Internal Medicine
PROC: 5A1955Z Respiratory Ventilation, Greater than 96 Consecutive Hours (ICD-10-PCS; principal; 2019-01-19)
PROC: 0BH17EZ Insertion of Endotracheal Airway into Trachea, Via Natural or Artificial Opening (ICD-10-PCS; 2019-01-19)
PROC: 02HV33Z Insertion of Infusion Device into Superior Vena Cava, Percutaneous Approach (ICD-10-PCS; 2019-01-19)
PROC: B548ZZA Ultrasonography of Superior Vena Cava, Guidance (ICD-10-PCS; 2019-01-19)
DX: A41.9 Sepsis, unspecified organism (principal); I50.43 Acute on chronic combined systolic (congestive) and diastolic (congestive) heart failure; R65.21 Severe sepsis with septic shock; I21.A1 Myocardial infarction type 2; J96.21 Acute and chronic respiratory failure with hypoxia; I46.9 Cardiac arrest, cause unspecified; G93.41 Metabolic encephalopathy; J69.0 Pneumonitis due to inhalation of food and vomit; R53.2 Functional quadriplegia; J44.1 Chronic obstructive pulmonary disease with (acute) exacerbation; R64 Cachexia; A31.0 Pulmonary mycobacterial infection; N17.9 Acute kidney failure, unspecified; I13.0 Hypertensive heart and chronic kidney disease with heart failure and stage 1 through stage 4 chronic kidney disease, or unspecified chronic kidney disease; E46 Unspecified protein-calorie malnutrition; G93.1 Anoxic brain damage, not elsewhere classified; Z99.81 Dependence on supplemental oxygen; I48.91 Unspecified atrial fibrillation; I25.5 Ischemic cardiomyopathy; I27.21 Secondary pulmonary arterial hypertension; I34.0 Nonrheumatic mitral (valve) insufficiency; I25.10 Atherosclerotic heart disease of native coronary artery without angina pectoris; N18.9 Chronic kidney disease, unspecified; Z68.20 Body mass index [BMI] 20.0-20.9, adult; R13.10 Dysphagia, unspecified
CPT/HCPCS: 31500; 36415; 36600; 70450; 71045; 76770; 80048; 80053; 81001; 81003; 82533; 82550; 82803; 83605; 83880; 84484; 85025; 85610; 85730; 87040; 87070; 87081; 87086; 87205; 89220; 92950; 93005; 94002; 94003; 94640; 96361; 96365; 96372; 99285; C1751; J0171; J0282; J1160; J1265; J1650; J1720; J1940; J1956; J2060; J2150; J2543; J2920; J3010; J3490; J7030; J7042; J7060; J7620; J7626; J8597; P9046; Q0092